=== PATIENT | male | born 1950 | race Caucasian/White ===

== ENCOUNTER 2016-05-20 23:06 | Emergency (ER) | payer OTHER ==
--- NOTE | 2016-05-20 23:40 | PROVIDER DOCUMENTATION ---
HPI-General Adult <Deniz Lang - Last Filed: 05/21/16 03:44> - General Source: patient, family - History of Present Illness -Gen Adult Nature of Presenting Problems: Pt is a 65 yom who presents to ER with CC of increased lethargy and fatigue. Pt had a stroke x5 weeks ago and was sent to rehab for 30 days and was discharged yesterday. Pt's family reports that pt was doing well throughout rehab, but woke up this am and reports pt was hard to wake up and had increased lethargy. Family also reports that pt has fell x3 today, and has had increased slurred speech today. Pt had R sided stroke and was left with total L side paralysis, slurred speech, and L sided facial droop. Family reports pt has fallen x3 today. Location of Pain/Injury: reports: none Pain Radiation: reports: no radiation Quality of Pain: reports: none Severity: reports: moderate Onset/Duration: reports: this morning Timing: reports: still present, constant Context/Activities at Onset: reports: sleep Associated Symptoms: reports: fatigue, headaches, syncope (near syncope), weakness, trouble walking. denies: anxiety, arm pain, back/neck pain, chest pain, diaphoresis, diarrhea, dizziness, fever/chills, loss of appetite, muscle aches, nausea, shortness of breath, vomiting <Jani Brito - Last Filed: 05/21/16 18:43> - General Chief Complaint: Altered Mental Status Stated Complaint: GENERAL, AMS Time Seen by Provider: 05/20/16 23:35 Allergies/Adverse Reactions: Patient Allergies Allergy/AdvReac Type Severity Reaction Status Date / Time Penicillins Allergy RASH Verified 05/20/16 23:25 Home Medications: Home Medication List Medication Instructions Recorded Confirmed Last Taken Type Alprazolam [Xanax Xr] 4 mg PO DAILY 09/16/13 05/21/16 05/20/16 14:00 History Aspirin [Aspirin EC] 81 mg PO DAILY 09/16/13 05/21/16 04/14/16 07:00 History 81 MG Amlodipine [Norvasc] 10 mg PO DAILY 05/21/16 05/21/16 Unknown History Atenolol [Tenormin] 25 mg PO DAILY 05/21/16 05/21/16 Unknown History Baclofen 10 mg PO TID 05/21/16 05/21/16 Unknown History Famotidine 20 mg PO BID 05/21/16 05/21/16 Unknown History Hydrocodone/APAP 5 mg/325 mg 1 each PO TID PRN PRN 05/21/16 05/21/16 Unknown History [[place]-5] Sertraline HCl 100 mg PO DAILY 05/21/16 05/21/16 Unknown History Tamsulosin [Flomax] 0.4 mg PO DAILY 05/21/16 05/21/16 Unknown History Review of Systems - Adult - REVIEW OF SYSTEMS - ADULT Constitutional: reports: fatique. denies: chills, fever, night sweats Eyes: reports: no symptoms reported Ears, Nose, Mouth & Throat: reports: no symptoms reported Cardiovascular: denies: chest pain, edema, heart murmur, irregular heart rate, palpitations, poor circulation, syncope (near-syncope) Respiratory: reports: no symptoms reported Gastrointestinal: reports: no symptoms reported Genitourinary: reports: no symptoms reported Musculoskeletal: reports: muscle weakness. denies: bone pain, back pain, frequent leg cramps, joint pain, joint swelling, muscle aches, neck pain Integumentary: reports: no symptoms reported Neurological: reports: headache/migraines, loss of balance, paresthesia (L sided (from prior stroke)), slurred speech (Increased (baseline is slurred; family reports is worse today)). denies: ataxia, dizziness/vertigo, numbness, seizure, syncope, tremors Psychiatric: reports: no symptoms reported Endocrine: reports: no symptoms reported Hematologic/Lymphatic: reports: no symptoms reported Allergic/Immunologic: reports: no symptoms reported All Other Systems: Reviewed and Negative <Jani Brito - Last Filed: 05/21/16 18:43> Past History - Adult - PAST MEDICAL HISTORY-ADULT Review of Records: reports: Nursing Assessment Review, Medications Reviewed Cardiovascular: reports: HTN Respiratory: reports: other (left lung removal) Gastrointestinal: reports: other (diverticulitis) Neurological: reports: other (bells palsy) - IMMUNIZATION STATUS Childhood Immunizations: See Nurse Assessment Flu Vaccine: See Nurse Assessment <Jani Brito - Last Filed: 05/21/16 18:43> Physical Exam-General - PHYSICAL EXAM-ADULT Initial Vital Signs Reviewed: Yes - CONSTITUTIONAL General Appearance: appears well, alert, moderate distress, lethargic, slow to respond, obtunded. negative: combative - RESPIRATORY Respiratory: chest non-tender, lungs clear, normal breath sounds. negative: respiratory distress, decreased breath sounds, accessory muscle use, wheezing - CARDIOVASCULAR Cardiovascular: normal peripheral pulses, regular rate, rhythm. negative: bradycardia, tachycardia, irregularly irregular - GASTROINTESTINAL (ABDOMEN) Abdominal Exam: normal bowel sounds, non tender, soft. negative: abnormal bowel sounds, tenderness, mass - SKIN Integumentary: normal color, normal turgor, warm/dry - NEUROLOGIC Neurologic: grossly normal, facial droop (L sided (baseline)), motor weakness ( L side (baseline)) - PSYCHIATRIC Psych/Mental Status: normal thought content, normal thought process, oriented x 3, disheveled, depressed affect, other (severely lethargic, per family) <Jani Brito - Last Filed: 05/21/16 18:43> Progress - PLAN OF CARE/RESULTS Progress/Plan/Lab Results: Laboratory Tests 05/21/16 05/21/16 05/21/16 00:40 00:40 00:40 WBC 11.04 H RBC 3.31 L Hgb 10.1 L Hct 31.2 L MCV 94.3 MCH 30.5 MCHC 32.4 L RDW Std Deviation 13.7 Plt Count 498 H MPV 9.8 Immature Gran % (Auto) 0.5 Neut % (Auto) 70.1 Lymph % (Auto) 15.9 L [place] % (Auto) 9.6 H Eos % (Auto) 3.5 Baso % (Auto) 0.4 Immature Gran # (Auto) 0.05 H Neut # (Auto) 7.74 H Lymph # (Auto) 1.76 [place] # (Auto) 1.06 H Eos # (Auto) 0.39 Baso # (Auto) 0.04 Sodium 141 Potassium 4.7 Chloride 101 Carbon Dioxide 28 Anion Gap 12 BUN 34 H Creatinine 1.2 Estimated GFR/1.73 m2 > 60 BUN/Creatinine Ratio 28 Glucose 96 Calculated Osmolality 289 Calcium 8.9 Magnesium 1.7 Total Bilirubin 0.19 L AST 22 ALT 27 Alkaline Phosphatase 90 Total Protein 6.0 L Albumin 2.9 L Globulin 3.1 Albumin/Globulin Ratio 0.9 Urine Source Urine Color Urine Turbidity Urine pH Ur Specific [place] Urine Protein Ur Glucose (Stick) Ur Ketones (Stick) Urine Blood Urine Nitrite Urine Bilirubin Urobilinogen Dipstick Urine Leukocytes Urine WBC (Auto) Urine RBC (Auto) U Epithel Cells (Auto) Urine Bacteria (Auto) Urine Opiates Screen Ur Oxycodone Screen Ur Methadone, Qual Ur Barbiturates Screen Ur Phencyclidine Scrn Ur Amphetamines Screen U Benzodiazepines Scrn Urine Cocaine Screen U Cannabinoids Screen Plasma/Serum Ethyl Alc 05/21/16 05/21/16 02:35 02:35 WBC RBC Hgb Hct MCV MCH MCHC RDW Std Deviation Plt Count MPV Immature Gran % (Auto) Neut % (Auto) Lymph % (Auto) [place] % (Auto) Eos % (Auto) Baso % (Auto) Immature Gran # (Auto) Neut # (Auto) Lymph # (Auto) [place] # (Auto) Eos # (Auto) Baso # (Auto) Sodium Potassium Chloride Carbon Dioxide Anion Gap BUN Creatinine Estimated GFR/1.73 m2 BUN/Creatinine Ratio Glucose Calculated Osmolality Calcium Magnesium Total Bilirubin AST ALT Alkaline Phosphatase Total Protein Albumin Globulin Albumin/Globulin Ratio Urine Source CATH Urine Color STRAW Urine Turbidity CLEAR Urine pH 7.0 Ur Specific [place] 1.010 Urine Protein TRACE A Ur Glucose (Stick) NEGATIVE Ur Ketones (Stick) NEGATIVE Urine Blood MODERATE A Urine Nitrite NEGATIVE Urine Bilirubin NEGATIVE Urobilinogen Dipstick NORMAL Urine Leukocytes NEGATIVE Urine WBC (Auto) <10 Urine RBC (Auto) 20-40 A U Epithel Cells (Auto) <10 Urine Bacteria (Auto) NEGATIVE Urine Opiates Screen NONE DETECTED Ur Oxycodone Screen NONE DETECTED Ur Methadone, Qual NONE DETECTED Ur Barbiturates Screen NONE DETECTED Ur Phencyclidine Scrn NONE DETECTED Ur Amphetamines Screen NONE DETECTED U Benzodiazepines Scrn PRESUMPTIVE POSITIVE A Urine Cocaine Screen NONE DETECTED U Cannabinoids Screen NONE DETECTED Plasma/Serum Ethyl Alc Orders Category Date Time Status CHEST-PORTABLE [RAD] Stat Exams 05/20/16 23:14 Taken HEAD W/O CONTRAST [CT] Stat Exams 05/20/16 23:14 Taken ALCOHOL BLOOD Stat Lab 05/20/16 23:57 Completed AMMONIA [CHEM] Stat Lab 05/21/16 00:55 Ordered CBC WITH ELECTRONIC DIFF [HEME] Stat Lab 05/21/16 00:40 Completed CMP [COMPREHENSIVE METABOLIC PANEL] [CHEM] Stat Lab 05/21/16 00:40 Completed MAGNESIUM [CHEM] Stat Lab 05/21/16 00:40 Completed UA Reflex [URINALYSIS W/POSS RFLX CULT] [URINALYSIS] Lab 05/21/16 02:35 Completed Stat UDS [URINE DRUG SCREEN] Stat Lab 05/21/16 02:35 Completed EKG [EKG] Stat Ther 05/20/16 23:14 Ordered Vital Signs Temp Pulse Resp BP Pulse Ox 05/20/16 23:18 97.8 F 56 L 18 142/59 97 Penicillins Allergy (Verified 05/20/16 23:25) RASH Alprazolam [Xanax Xr] 4 mg PO DAILY 09/16/13 Aspirin [Aspirin EC] 81 mg PO DAILY 09/16/13 Amlodipine [Norvasc] 10 mg PO DAILY 05/21/16 Atenolol [Tenormin] 25 mg PO DAILY 05/21/16 Baclofen 10 mg PO TID 05/21/16 Famotidine 20 mg PO BID 05/21/16 Hydrocodone/APAP 5 mg/325 mg [[place]-5] 1 each PO TID PRN PRN 05/21/16 Sertraline HCl 100 mg PO DAILY 05/21/16 Tamsulosin [Flomax] 0.4 mg PO DAILY 05/21/16 Laboratory 05/21/16 05/21/16 05/21/16 02:35 02:35 00:40 WBC RBC Hgb Hct MCV MCH MCHC RDW Std Deviation Plt Count MPV Immature Gran % (Auto) Neut % (Auto) Lymph % (Auto) [place] % (Auto) Eos % (Auto) Baso % (Auto) Immature Gran # (Auto) Neut # (Auto) Lymph # (Auto) [place] # (Auto) Eos # (Auto) Baso # (Auto) Sodium 141 Potassium 4.7 Chloride 101 Carbon Dioxide 28 Anion Gap 12 BUN 34 H Creatinine 1.2 Estimated GFR/1.73 m2 > 60 BUN/Creatinine Ratio 28 Glucose 96 Calculated Osmolality 289 Calcium 8.9 Magnesium 1.7 Total Bilirubin 0.19 L AST 22 ALT 27 Alkaline Phosphatase 90 Total Protein 6.0 L Albumin 2.9 L Globulin 3.1 Albumin/Globulin Ratio 0.9 Urine Source CATH Urine Color STRAW Urine Turbidity CLEAR Urine pH 7.0 Ur Specific [place] 1.010 Urine Protein TRACE A Ur Glucose (Stick) NEGATIVE Ur Ketones (Stick) NEGATIVE Urine Blood MODERATE A Urine Nitrite NEGATIVE Urine Bilirubin NEGATIVE Urobilinogen Dipstick NORMAL Urine Leukocytes NEGATIVE Urine WBC (Auto) <10 Urine RBC (Auto) 20-40 A U Epithel Cells (Auto) <10 Urine Bacteria (Auto) NEGATIVE Urine Opiates Screen NONE DETECTED Ur Oxycodone Screen NONE DETECTED Ur Methadone, Qual NONE DETECTED Ur Barbiturates Screen NONE DETECTED Ur Phencyclidine Scrn NONE DETECTED Ur Amphetamines Screen NONE DETECTED U Benzodiazepines Scrn PRESUMPTIVE POSITIVE A Urine Cocaine Screen NONE DETECTED U Cannabinoids Screen NONE DETECTED Plasma/Serum Ethyl Alc 05/21/16 05/21/16 00:40 00:40 WBC 11.04 H RBC 3.31 L Hgb 10.1 L Hct 31.2 L MCV 94.3 MCH 30.5 MCHC 32.4 L RDW Std Deviation 13.7 Plt Count 498 H MPV 9.8 Immature Gran % (Auto) 0.5 Neut % (Auto) 70.1 Lymph % (Auto) 15.9 L [place] % (Auto) 9.6 H Eos % (Auto) 3.5 Baso % (Auto) 0.4 Immature Gran # (Auto) 0.05 H Neut # (Auto) 7.74 H Lymph # (Auto) 1.76 [place] # (Auto) 1.06 H Eos # (Auto) 0.39 Baso # (Auto) 0.04 Sodium Potassium Chloride Carbon Dioxide Anion Gap BUN Creatinine Estimated GFR/1.73 m2 BUN/Creatinine Ratio Glucose Calculated Osmolality Calcium Magnesium Total Bilirubin AST ALT Alkaline Phosphatase Total Protein Albumin Globulin Albumin/Globulin Ratio Urine Source Urine Color Urine Turbidity Urine pH Ur Specific [place] Urine Protein Ur Glucose (Stick) Ur Ketones (Stick) Urine Blood Urine Nitrite Urine Bilirubin Urobilinogen Dipstick Urine Leukocytes Urine WBC (Auto) Urine RBC (Auto) U Epithel Cells (Auto) Urine Bacteria (Auto) Urine Opiates Screen Ur Oxycodone Screen Ur Methadone, Qual Ur Barbiturates Screen Ur Phencyclidine Scrn Ur Amphetamines Screen U Benzodiazepines Scrn Urine Cocaine Screen U Cannabinoids Screen Plasma/Serum Ethyl Alc - REASSESSMENT Reassessment #1 Time Reassessed: 03:46 (new hx is that he HAD been taking 4mg of extended release aprazolam until he had his CVA and is was off of it for a prolonged time then restarted at a much lower dose until yesterday when he went back to his old much higher dose which caused today's sedation) Status: unchanged <JohnnieWendyVivianaDeniz gallegosRonak - Last Filed: 05/21/16 03:44> - PLAN OF CARE/RESULTS Progress/Plan/Lab Results: POC: labs/Chest X-ray/Head CT Vital Signs - 24 hr 05/20/16 05/21/16 23:18 04:22 Temperature 97.8 F Pulse Rate 56 L 58 L Respiratory 18 17 Rate Blood Pressure 142/59 136/69 O2 Sat by Pulse 97 99 Oximetry Orders Category Date Time Status CHEST-PORTABLE [RAD] Stat Exams 05/20/16 23:14 Completed HEAD W/O CONTRAST [CT] Stat Exams 05/20/16 23:14 Completed ALCOHOL BLOOD Stat Lab 05/20/16 23:57 Completed CBC WITH ELECTRONIC DIFF [HEME] Stat Lab 05/21/16 00:40 Completed CMP [COMPREHENSIVE METABOLIC PANEL] [CHEM] Stat Lab 05/21/16 00:40 Completed MAGNESIUM [CHEM] Stat Lab 05/21/16 00:40 Completed UA Reflex [URINALYSIS W/POSS RFLX CULT] [URINALYSIS] Lab 05/21/16 02:35 Completed Stat UDS [URINE DRUG SCREEN] Stat Lab 05/21/16 02:35 Completed EKG [EKG] Stat Ther 05/20/16 23:14 Ordered Laboratory Tests 05/21/16 05/21/16 05/21/16 00:40 00:40 00:40 WBC 11.04 H RBC 3.31 L Hgb 10.1 L Hct 31.2 L MCV 94.3 MCH 30.5 MCHC 32.4 L RDW Std Deviation 13.7 Plt Count 498 H MPV 9.8 Immature Gran % (Auto) 0.5 Neut % (Auto) 70.1 Lymph % (Auto) 15.9 L [place] % (Auto) 9.6 H Eos % (Auto) 3.5 Baso % (Auto) 0.4 Immature Gran # (Auto) 0.05 H Neut # (Auto) 7.74 H Lymph # (Auto) 1.76 [place] # (Auto) 1.06 H Eos # (Auto) 0.39 Baso # (Auto) 0.04 Sodium 141 Potassium 4.7 Chloride 101 Carbon Dioxide 28 Anion Gap 12 BUN 34 H Creatinine 1.2 Estimated GFR/1.73 m2 > 60 BUN/Creatinine Ratio 28 Glucose 96 Calculated Osmolality 289 Calcium 8.9 Magnesium 1.7 Total Bilirubin 0.19 L AST 22 ALT 27 Alkaline Phosphatase 90 Total Protein 6.0 L Albumin 2.9 L Globulin 3.1 Albumin/Globulin Ratio 0.9 Urine Source Urine Color Urine Turbidity Urine pH Ur Specific [place] Urine Protein Ur Glucose (Stick) Ur Ketones (Stick) Urine Blood Urine Nitrite Urine Bilirubin Urobilinogen Dipstick Urine Leukocytes Urine WBC (Auto) Urine RBC (Auto) U Epithel Cells (Auto) Urine Bacteria (Auto) Urine Opiates Screen Ur Oxycodone Screen Ur Methadone, Qual Ur Barbiturates Screen Ur Phencyclidine Scrn Ur Amphetamines Screen U Benzodiazepines Scrn Urine Cocaine Screen U Cannabinoids Screen Plasma/Serum Ethyl Alc 05/21/16 05/21/16 02:35 02:35 WBC RBC Hgb Hct MCV MCH MCHC RDW Std Deviation Plt Count MPV Immature Gran % (Auto) Neut % (Auto) Lymph % (Auto) [place] % (Auto) Eos % (Auto) Baso % (Auto) Immature Gran # (Auto) Neut # (Auto) Lymph # (Auto) [place] # (Auto) Eos # (Auto) Baso # (Auto) Sodium Potassium Chloride Carbon Dioxide Anion Gap BUN Creatinine Estimated GFR/1.73 m2 BUN/Creatinine Ratio Glucose Calculated Osmolality Calcium Magnesium Total Bilirubin AST ALT Alkaline Phosphatase Total Protein Albumin Globulin Albumin/Globulin Ratio Urine Source CATH Urine Color STRAW Urine Turbidity CLEAR Urine pH 7.0 Ur Specific [place] 1.010 Urine Protein TRACE A Ur Glucose (Stick) NEGATIVE Ur Ketones (Stick) NEGATIVE Urine Blood MODERATE A Urine Nitrite NEGATIVE Urine Bilirubin NEGATIVE Urobilinogen Dipstick NORMAL Urine Leukocytes NEGATIVE Urine WBC (Auto) <10 Urine RBC (Auto) 20-40 A U Epithel Cells (Auto) <10 Urine Bacteria (Auto) NEGATIVE Urine Opiates Screen NONE DETECTED Ur Oxycodone Screen NONE DETECTED Ur Methadone, Qual NONE DETECTED Ur Barbiturates Screen NONE DETECTED Ur Phencyclidine Scrn NONE DETECTED Ur Amphetamines Screen NONE DETECTED U Benzodiazepines Scrn PRESUMPTIVE POSITIVE A Urine Cocaine Screen NONE DETECTED U Cannabinoids Screen NONE DETECTED Plasma/Serum Ethyl Alc - XRAY 1 XRAY: Bilateral XRAY Study: Chest Impression: See EMR Report (Recent R infarct; No blood on the current exam; No midline shift; Possible small recent L infarct; No hydrocephalus) XRAY Interpretation: See report - CT/MRI 1 CT Study: Head Impression: See EMR Report CT Results: Old R sided CVA, no acute changes <Jani Brito - Last Filed: 05/21/16 18:43> Departure - Departure Time of Disposition Order: 03:44 <Deniz Lang - Last Filed: 05/21/16 03:44> - Departure Time of Disposition Order: 04:31 Certified Medical Emergency: Emergent <Jani Brito - Last Filed: 05/21/16 18:43> - Departure DIAGNOSIS: Adverse effect of benzodiazepine Qualifiers: Encounter type: initial encounter Qualified Code(s): T42.4X5A - Adverse effect of benzodiazepines, initial encounter Disposition: HOME 01 Condition: Stable Referrals: Uyen Arceo MD [Primary Care Provider] - Instructions: Basics of Medicine Management Attestation - Scribe Verification/Attestation Scribe:: Jani Brito Acting as Scribe for:: Deniz Lang Scribe documention review:: This chart was documented by a scribe and accurately reflects the service the provider performed and the decisions made by the provider. <Jani Brito - Last Filed: 05/21/16 18:43> Physician Attestation
[2016-05-21 00:58] LABS: MANUAL DIFF NEEDED? NO
[2016-05-21 01:01] LABS: BASO% 0.4 % (0.0-0.8); EOS# 0.39 X1000 (0.0-0.7); EOS% 3.5 % (0.0-10.0); HEMATOCRIT 31.2 % (42.0-52.0); HEMOGLOBIN 10.1 g/dL (14.0-18.0); IMM GRAN# 0.05 X1000 (0.0-0.04); IMM GRAN% 0.5 % (0.0-0.5); LYMPH# 1.76 X1000 (1.2-3.4); LYMPH% 15.9 % (20.5-51.1); MCH 30.5 PG (27-31); MCHC 32.4 g/dL (33-37); MCV 94.3 FL (81-99); MONO# 1.06 X1000 (0.11-0.59); MONO% 9.6 % (1.7-9.3); MPV 9.8 FL (7.4-10.4); NEUT% 70.1 % (42.2-75.2); PLT 498 X1000 (130-400); RBC 3.31 XMIL (4.7-6.1)
[2016-05-21 01:27] LABS: AGAP 12; ALBUMIN 2.9 g/dL (3.5-5.0); ALKALINE PHOSPHATASE 90 U/L (32-122); BUN 34 mg/dL (8-22); CALCIUM 8.9 mg/dL (8.8-10.2); CHLORIDE 101 mmol/L (98-107); COSMO 289; GOT 22 U/L (10-34); GPT 27 U/L (10-44); MAGNESIUM 1.7 mg/dL (1.5-2.7); POTASSIUM 4.7 mmol/L (3.5-5.1); SODIUM 141 mmol/L (136-145); TCO2 28 mmol/L (25-35); TOTAL BILIRUBIN 0.19 mg/dL (0.20-1.00)
[2016-05-21 02:43] LABS: URINE CULTURE NEEDED? NO; URINE MICRO REVIEW NEEDED? NO; URINE SOURCE CATH
[2016-05-21 02:46] LABS: BILIRUBIN URINE NEGATIVE (NEGATIVE); BLOOD URINE MODERATE (NEGATIVE); COLOR STRAW; GLUCOSE URINE NEGATIVE (NEGATIVE); LEUKOCYTES URINE NEGATIVE (NEGATIVE); NITRITE URINE NEGATIVE (NEGATIVE); PROTEIN URINE TRACE mg/dL (NEGATIVE); TURBIDITY URINE CLEAR (CLEAR); UROBILINOGEN URINE NORMAL (NORMAL)
[2016-05-21 02:47] LABS: UR EPITHELIAL CELLS <10 /HPF (<10); URINE BACTERIA NEGATIVE /HPF; URINE RBC 20-40 /HPF (<10); URINE WBC <10 /HPF (<10)
[2016-05-21 03:00] LABS: UR AMPHETAMINES QUAL NONE DETECTED (NONE DETECT); UR BARBITUATES QUAL NONE DETECTED (NONE DETECT); UR BENZODIAZEPIN QUAL PRESUMPTIVE POSITIVE (NONE DETECT); UR CANNABINOIDS QUAL NONE DETECTED (NONE DETECT); UR COCAINE QUAL NONE DETECTED (NONE DETECT); UR METHADONE QUAL NONE DETECTED (NONE DETECT); UR OPIATES QUAL NONE DETECTED (NONE DETECT); UR OXYCODONE QUAL NONE DETECTED (NONE DETECT); UR PCP QUAL NONE DETECTED (NONE DETECT)
[2016-05-21 04:23] VITALS: BP 136/69
--- NOTE | 2016-05-21 09:32 | Diag Imaging Result Document ---
PROCEDURE NAME: CHEST-PORTABLE - 05/20/2016 AP PORTABLE CHEST, 05/20/2016 AT 2335 HOURS: FINDINGS: There are granulomata in the right base and there is COPD. The left hemithorax is completely opacified status post pneumonectomy. Overall, the appearance of the chest has not changed significantly since 04/14/2016. IMPRESSION: Stable chest.
--- NOTE | 2016-05-21 10:56 | Diag Imaging Result Document ---
PROCEDURE NAME: HEAD W/O CONTRAST - 05/20/2016 CT OF THE HEAD WITHOUT CONTRAST: FINDINGS: There is hypodensity and some slight mass effect associated with the hypodense lesion in the posterior limb of the internal capsule, the posterior external capsule, thalamus and basal ganglia on the right. There was a hemorrhage in this location on the previous study of 04/14/2016. The hyperdense hemorrhage has resolved since the previous study. No additional foci of bleeding are present and there is no evidence of abnormal extraaxial fluid collection. There is also some abnormal lucency in the aguilera radiata region on the left which was present at the time of the previous study. There is no evidence of hydrocephalus. There is some mucosal thickening in the frontal and ethmoid air cells. This is slightly worse than on the previous study. 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 Chronic ischemic microvascular changes. If clinically indicated, further evaluation with MRI may be desirable.
== END 2016-05-21 04:31 | disposition home or self-care (01) ==
LOC: ED 23:06
DX: T42.4X5A Adverse effect of benzodiazepines, initial encounter (principal); R53.83 Other fatigue; R47.81 Slurred speech; R51 Headache; R55 Syncope and collapse; M62.81 Muscle weakness (generalized); R29.810 Facial weakness; R41.82 Altered mental status, unspecified; R42 Dizziness and giddiness; I10 Essential (primary) hypertension; I69.398 Other sequelae of cerebral infarction; I69.328 Other speech and language deficits following cerebral infarction; Z79.82 Long term (current) use of aspirin; Z79.899 Other long term (current) drug therapy; W19.XXXA Unspecified fall, initial encounter
CPT/HCPCS: 70450; 71010; 80053; 81001; 83735; 85025; 93005; G0480; 80320; 80324; 80345; 80346; 80349; 80353; 80358; 80361; 80365; 83992

== ENCOUNTER 2016-07-01 04:40 | Inpatient (IN) ==
--- NOTE | 2016-07-01 05:36 | PROVIDER DOCUMENTATION ---
HPI-General Adult - General Chief Complaint: Altered Mental Status Stated Complaint: FEVER, CONFUSION, COUGHING UP BLOOD Time Seen by Provider: 07/01/16 04:58 Source: patient, family Allergies/Adverse Reactions: Patient Allergies Allergy/AdvReac Type Severity Reaction Status Date / Time Penicillins Allergy RASH Verified 07/01/16 05:38 Home Medications: Home Medication List Medication Instructions Recorded Confirmed Last Taken Type Alprazolam [Xanax Xr] 1 mg PO BID 09/16/13 07/01/16 06/30/16 History Aspirin [Aspirin EC] 81 mg PO DAILY 09/16/13 07/01/16 06/30/16 History Amlodipine [Norvasc] 10 mg PO DAILY 05/21/16 07/01/16 06/30/16 History Atenolol [Tenormin] 25 mg PO DAILY 05/21/16 07/01/16 06/30/16 History Baclofen 10 mg PO TID 05/21/16 07/01/16 06/30/16 History Famotidine 20 mg PO BID 05/21/16 07/01/16 06/30/16 History Hydrocodone/APAP 5 mg/325 mg 1 each PO TID PRN PRN 05/21/16 07/01/16 Unknown History [[place]-5] Sertraline HCl 100 mg PO DAILY 05/21/16 07/01/16 06/30/16 History Tamsulosin [Flomax] 0.4 mg PO DAILY 05/21/16 07/01/16 06/30/16 History Multivit-Min/FA/Lycopen/Lutein 1 tab PO DAILY 07/01/16 07/01/16 06/30/16 History [Men 50 Plus Multivitamin Tab] - History of Present Illness -Gen Adult Nature of Presenting Problems: 65 yr old white male suffer hemorhagic CVA a few months ago and was in [facility] for 4 weeks and outpt PT subsequently. He has made a fairly good recovery despite having a bout of withdrawal secondary to abruptly discontinuing benzodiazepines, a UTI, etc. He awoke this am with hemoptosis described as bright red blood. He has undergone a rt pneumonectomy 13 years ago for cancer and did stop smoking at that point. Appetite is good. Location of Pain/Injury: reports: none Pain Radiation: reports: no radiation Quality of Pain: reports: none Context/Activities at Onset: reports: none Similar Symptoms Previously?: No Recently seen or treated by another doctor?: Yes ([facility]) Review of Systems - Adult - REVIEW OF SYSTEMS - ADULT Constitutional: reports: see HPI, chills, fever, weight loss Eyes: reports: no symptoms reported Ears, Nose, Mouth & Throat: reports: no symptoms reported Cardiovascular: reports: no symptoms reported Respiratory: reports: see HPI Gastrointestinal: reports: no symptoms reported Genitourinary: reports: frequency, incontinence, urinary retention Integumentary: reports: other (left hemiparesis) Neurological: reports: see HPI, dizziness/vertigo, loss of balance, slurred speech Psychiatric: reports: anti-depressant use Endocrine: reports: no symptoms reported Hematologic/Lymphatic: reports: no symptoms reported Allergic/Immunologic: reports: no symptoms reported Past History - Adult - PAST MEDICAL HISTORY-ADULT Review of Records: reports: Old Records Reviewed, Nursing Assessment Review, Medications Reviewed, Social history reviewed & non-contributory. Major Childhood Illnesses: reports: denies history Cardiovascular: reports: HTN Respiratory: reports: other (left lung removal) Gastrointestinal: reports: other (diverticulitis) Neurological: reports: other (bells palsy) - IMMUNIZATION STATUS Childhood Immunizations: See Nurse Assessment Flu Vaccine: See Nurse Assessment Physical Exam-General - PHYSICAL EXAM-ADULT Initial Vital Signs Reviewed: Yes - CONSTITUTIONAL General Appearance: no apparent distress, thin - EYES Eyes: pink conjunctivae - HEAD, EARS, NOSE, MOUTH & THROAT HENMT: other (cervical adenopathy) - NECK Neck: lymphadenopathy - RESPIRATORY Respiratory: decreased breath sounds, wheezing, other (rt pneumonectomy) - CARDIOVASCULAR Cardiovascular: normal peripheral pulses, regular rate, rhythm, no edema, no gallop, no JVD - GASTROINTESTINAL (ABDOMEN) Abdominal Exam: normal bowel sounds, non tender - MUSCULOSKELETAL Extremity: non-tender, no pedal edema, no calf tenderness, normal capillary refill (Hemiparesis). negative: normal gait, normal inspection Peripheral Pulses: radial (R): 3+, radial (L): 3+ - SKIN Integumentary: normal color, normal turgor, warm/dry - NEUROLOGIC Neurologic: abnormal gait, motor weakness (Left hemiparesis), other (mild dysphasis). negative: no motor/sensory deficits - PSYCHIATRIC Psych/Mental Status: normal thought content, oriented x 3 Progress - PLAN OF CARE/RESULTS Progress/Plan/Lab Results: Vital Signs - 8 hr 07/01/16 04:45 Temperature 97.4 F L Pulse Rate 66 Respiratory Rate 16 Blood Pressure 150/57 O2 Sat by Pulse Oximetry 98 Orders Category Date Time Status CHEST-PORTABLE [RAD] Stat Exams 07/01/16 05:23 Ordered CBC WITH ELECTRONIC DIFF [HEME] Stat Lab 07/01/16 05:22 Uncollected COMPREHENSIVE METABOLIC PANEL [CHEM] Stat Lab 07/01/16 05:22 Uncollected UA NIMS W/REFLEX CULT [URINALYSIS] Stat Lab 07/01/16 05:23 Uncollected Result Diagrams: 07/01/16 05:30 07/01/16 05:30 - XRAY 1 XRAY Study: Chest Impression: Abnormal XRAY Interpretation: RLL infiltrates - CT/MRI 1 CT Study: Head Comparison with other Films: no changes MRI Study: Brain - CONSULTS/PCP/HOSPITALIST Notification Time Discussed: 08:01 Reason/Comments: Admit to hospitalist Consult Disposition: Admit Departure - Departure Time of Disposition Decision: 08:00 DIAGNOSIS: Pneumonia Qualifiers: Pneumonia type: due to unspecified organism Laterality: right Lung location: lower lobe of lung Qualified Code(s): J18.1 - Lobar pneumonia, unspecified organism UTI (urinary tract infection) Qualifiers: Urinary tract infection type: acute cystitis Hematuria presence: without hematuria Qualified Code(s): N30.00 - Acute cystitis without hematuria Disposition: ADMITTED INPATIENT 09 Certified Medical Emergency: Emergent Condition: Stable Referrals and Follow-Ups: Uyen Arceo MD [Primary Care Provider] -
[2016-07-01 05:43] LABS: URINE MICRO REVIEW NEEDED? NO; URINE SOURCE CLEAN CATCH
[2016-07-01 05:46] LABS: BILIRUBIN URINE NEGATIVE (NEGATIVE); BLOOD URINE MODERATE (NEGATIVE); COLOR YELLOW; GLUCOSE URINE NEGATIVE (NEGATIVE); LEUKOCYTES URINE TRACE (NEGATIVE); NITRITE URINE NEGATIVE (NEGATIVE); PROTEIN URINE 50 mg/dL (NEGATIVE); SP GRAVITY URINE 1.015; TURBIDITY URINE HAZY (CLEAR); UROBILINOGEN URINE NORMAL (NORMAL)
[2016-07-01 05:48] LABS: UR EPITHELIAL CELLS <10 /HPF (<10); URINE BACTERIA NEGATIVE /HPF; URINE CULTURE NEEDED? YES; URINE RBC 20-40 /HPF (<10)
[2016-07-01 05:51] LABS: BASO% 0.2 % (0.0-0.8); EOS# 0.05 X1000 (0.0-0.7); EOS% 0.2 % (0.0-10.0); HEMATOCRIT 28.8 % (42.0-52.0); HEMOGLOBIN 9.6 g/dL (14.0-18.0); IMM GRAN# 0.08 X1000 (0.0-0.04); IMM GRAN% 0.4 % (0.0-0.5); LYMPH# 1.59 X1000 (1.2-3.4); LYMPH% 7.3 % (20.5-51.1); MANUAL DIFF NEEDED? NO; MCH 30.8 PG (27-31); MCHC 33.3 g/dL (33-37); MCV 92.3 FL (81-99); MONO# 2.66 X1000 (0.11-0.59); MONO% 12.3 % (1.7-9.3); MPV 10.3 FL (7.4-10.4); NEUT% 79.6 % (42.2-75.2); PLT 378 X1000 (130-400); RBC 3.12 XMIL (4.7-6.1)
[2016-07-01] MEDS ORDERED: NS 1,000 ML IV ONE (06:25)
[2016-07-01] MEDS ORDERED: VANCOMYCIN 1 GM/NS 1 GM/250 ML IVPB IV ONE (06:26)
[2016-07-01] MEDS ORDERED: LEVAQUIN 500 MG/D5W 500 MG/100 ML IVPB IV ONE (06:27)
[2016-07-01 06:31] LABS: ALBUMIN 3.1 g/dL (3.5-5.0); CALCIUM 9.3 mg/dL (8.8-10.2); POTASSIUM 4.8 mmol/L (3.5-5.1); TOTAL BILIRUBIN 0.43 mg/dL (0.20-1.00); TOTAL PROTEIN 7.5 g/dL (6.3-8.3)
[2016-07-01 06:44] LABS: ALLEN TEST YES; BE 3.6 mmoll (-3.0-3.0); BLOOD TYPE ARTERIAL; DRAW SITE R RADIAL; METHB 1.7 % (0.0-1.5); O2(CT) 11.4 mL/dL (15.0-23.0); PO2(98.6) 61 mmHg (60-100); SAMPLE BLOOD; SAO2 95.4 % (95.0-100.0); THB 8.8 g/dL (11.5-17.4); pH(98.6) 7.37 (7.35-7.45)
[2016-07-01 06:45] LABS: MODALITY CANNULA
[2016-07-01 06:47] LABS: PCO2(98.6) 51 mmHg (35-45)
--- NOTE | 2016-07-01 07:56 | Diag Imaging Result Document ---
PROCEDURE NAME: HEAD W/O CONTRAST - 07/01/[address]: 07/01/2016. A CT dose reduction protocol was used. COMPARISON: 05/20/2016. FINDINGS: Stable hypodensity at the right basal ganglia. Stable hypodensities in the cerebral white matter compatible with chronic microvascular disease. No intracranial mass or hemorrhage. The skull is intact. The sinuses, mastoids, and middle ears are clear. IMPRESSION: No acute disease or change from prior. [facility]
--- NOTE | 2016-07-01 08:43 | Diag Imaging Result Document ---
PROCEDURE NAME: CT THORAX W/O CONTRAST - 07/01/2016 CT CHEST: A CT dose reduction protocol was used. COMPARISON: Chest x-ray earlier 07/01/2016. FINDINGS: There has been left pneumonectomy. There is severe COPD throughout the right lung. There is severe infiltrate throughout the right lower and middle lobes with some patchy infiltrate in the right upper lobe, as well. When compared with 09/16/2013, there is decrease in size of a spiculated nodular opacity in the right upper lobe. This now measures about 15 mm, previously measuring about 21 mm. No adenopathy. Anemia is present. No acute or suspicious bony lesions. There is chronic bronchitis throughout the right lung. IMPRESSION: 1. Multilobar pneumonia throughout the right lung. Chronic bronchitis. 2. Advanced COPD. 3. Decreased size of the pulmonary nodule in the right upper lobe. MTDD
[2016-07-01 08:46] LABS: PROTEIN CREAT RATIO 0.8; UR CREAT RANDOM 84.2 mg/dL (14-26); UR PROT RANDOM 65.8 mg/dL
[2016-07-01 08:48] LABS: RETIC% 1.35 % (0.8-2.1); RETIC-HE 27.5 PG (28.2-36.6)
[2016-07-01 08:53] LABS: IRON SATURATION 7 %; TIBC 177 ug/dL; TOTAL IRON 13 ug/dL (53-167); UNBOUND IRON 164 ug/dL (112-346)
--- NOTE | 2016-07-01 09:02 | Diag Imaging Result Document ---
PROCEDURE NAME: CHEST-PORTABLE - 07/01/2016 PORTABLE CHEST X-RAY: COMPARISON: 05/20/2016. FINDINGS: Stable changes of left pneumonectomy. Stable hyperexpanded right lung. There is substantial alveolar infiltrate throughout the right lung with basilar predominance. No pneumothorax or large effusion. IMPRESSION: Significant infiltrate throughout the right lung.
--- NOTE | 2016-07-01 10:08 | Diag Imaging Result Document ---
PROCEDURE NAME: US RENAL 2 (RETROPER) COMPLETE - 07/01/2016 RENAL ULTRASOUND: COMPARISON: None. FINDINGS: The kidneys and urinary bladder are normal. The right kidney measures 9.7 x 4.2 x 4.2 cm. Cortex measures 1 cm. The left kidney measures 9.5 x 4.3 x 4.8 cm. Cortex measures 1.1 cm. IMPRESSION: Negative exam.
[2016-07-01] MEDS ORDERED: VANCOMYCIN IV PER PHARMACY MISC SCH (10:58)
[2016-07-01] MEDS ORDERED: DUONEB (A & A) INH PRN (10:58)
[2016-07-01] MEDS ORDERED: NORCO-5 PO PRN (10:58)
[2016-07-01] MEDS: MERREM 500 MG in NS 50 ML IV SCH (12:46)
[2016-07-01] MEDS: PROTONIX IV SCH (12:46)
[2016-07-01] MEDS: LIORESAL PO SCH ×2 (12:47→17:14)
[2016-07-01] MEDS: ICAR-C PO SCH (12:47)
[2016-07-01] MEDS: NS 1,000 ML IV SCH (12:48)
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
[2016-07-01] MEDS ORDERED: VANCOMYCIN 500 MG/NS 500 MG/100 ML IVPB IV ONE (14:00)
[2016-07-01] MEDS ORDERED: DUONEB (A & A) INH SCH (15:00)
[2016-07-01] MEDS: DUONEB (A & A) INH SCH ×4 (15:58→22:55)
[2016-07-01] MEDS: XANAX XR PO SCH (20:55)
[2016-07-01] MEDS: PEPCID PO SCH (20:55)
[2016-07-01] MEDS ORDERED: XANAX XR PO SCH (21:00)
[2016-07-02] MEDS: MERREM 500 MG in NS 50 ML IV SCH ×3 (01:00→23:36)
[2016-07-02] MEDS: NS 1,000 ML IV SCH ×2 (01:07→13:39)
[2016-07-02 02:31] LABS: URINE CULTURE NEEDED? NO; URINE SOURCE CATH
[2016-07-02 02:42] LABS: BILIRUBIN URINE NEGATIVE (NEGATIVE); BLOOD URINE MODERATE (NEGATIVE); COLOR YELLOW; GLUCOSE URINE NEGATIVE (NEGATIVE); LEUKOCYTES URINE NEGATIVE (NEGATIVE); NITRITE URINE NEGATIVE (NEGATIVE); PROTEIN URINE 30 mg/dL (NEGATIVE); SP GRAVITY URINE 1.013; TURBIDITY URINE HAZY (CLEAR); URINE MICRO REVIEW NEEDED? YES; UROBILINOGEN URINE NORMAL (NORMAL)
[2016-07-02 02:45] LABS: UR EPITHELIAL CELLS <10 /HPF (<10); URINE BACTERIA NEGATIVE /HPF; URINE WBC <10 /HPF (<10)
[2016-07-02] MEDS: DUONEB (A & A) INH SCH ×6 (03:12→23:01)
[2016-07-02 03:51] LABS: URINE CASTS WHITE CELL PRESENT; URINE CRYSTALS NONE SEEN; URINE SMALL ROUND CELLS NONE SEEN
[2016-07-02 04:49] LABS: ALLEN TEST YES; BE 2.3 mmoll (-3.0-3.0); BLOOD TYPE ARTERIAL; DRAW SITE R RADIAL; METHB 1.7 % (0.0-1.5); MODALITY CANNULA; O2(CT) 9.1 mL/dL (15.0-23.0); PCO2(98.6) 44 mmHg (35-45); PO2(98.6) 57 mmHg (60-100); SAMPLE BLOOD; SAO2 94.5 % (95.0-100.0); THB 7.1 g/dL (11.5-17.4)
[2016-07-02] MEDS ORDERED: ATIVAN IV ONE (05:21)
[2016-07-02 06:57] LABS: MANUAL DIFF NEEDED? NO
[2016-07-02 07:33] LABS: BASO% 0.2 % (0.0-0.8); EOS# 0.02 X1000 (0.0-0.7); EOS% 0.1 % (0.0-10.0); HEMATOCRIT 24.1 % (42.0-52.0); HEMOGLOBIN 7.7 g/dL (14.0-18.0); IMM GRAN# 0.06 X1000 (0.0-0.04); IMM GRAN% 0.4 % (0.0-0.5); LYMPH# 0.83 X1000 (1.2-3.4); LYMPH% 5.5 % (20.5-51.1); MCH 29.3 PG (27-31); MCV 91.6 FL (81-99); MONO# 1.65 X1000 (0.11-0.59); MONO% 10.9 % (1.7-9.3); MPV 10.7 FL (7.4-10.4); NEUT% 82.9 % (42.2-75.2); PLT 315 X1000 (130-400); RBC 2.63 XMIL (4.7-6.1)
[2016-07-02 07:34] LABS: ALBUMIN 2.4 g/dL (3.5-5.0); CALCIUM 8.6 mg/dL (8.8-10.2); POTASSIUM 4.2 mmol/L (3.5-5.1); TOTAL BILIRUBIN 0.34 mg/dL (0.20-1.00); TOTAL PROTEIN 6.2 g/dL (6.3-8.3)
--- NOTE | 2016-07-02 08:02 | Diag Imaging Result Document ---
PROCEDURE NAME: CHEST-1 VIEW - 07/02/2016 PORTABLE CHEST X-RAY, 07/02/2016: COMPARISON: 07/01/2016. FINDINGS: Stable left pneumonectomy changes. Stable significant infiltrate throughout the right lung mostly in the base. No new infiltrates. IMPRESSION: No change from prior.
[2016-07-02] MEDS: ASPIRIN EC PO SCH (08:33)
[2016-07-02] MEDS: THERA M PLUS PO SCH (08:33)
[2016-07-02] MEDS: PEPCID PO SCH ×2 (08:33→20:29)
[2016-07-02] MEDS: NORVASC PO SCH (08:33)
[2016-07-02] MEDS: LIORESAL PO SCH ×3 (08:33→17:48)
[2016-07-02] MEDS: FLOMAX PO SCH (08:34)
[2016-07-02] MEDS: TENORMIN PO SCH (08:34)
[2016-07-02] MEDS: ZOLOFT PO SCH (08:36)
[2016-07-02] MEDS: ICAR-C PO SCH (08:36)
[2016-07-02] MEDS ORDERED: LEVAQUIN 500 MG/D5W 500 MG/100 ML IVPB IV SCH (10:00)
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
[2016-07-02] MEDS: XANAX XR PO SCH ×2 (11:13→20:29)
[2016-07-02] MEDS: SODIUM CHLORIDE 0.9% INJ SCH (11:17)
[2016-07-02] MEDS: PROTONIX IV SCH (11:17)
--- NOTE | 2016-07-02 14:29 | PROGRESS NOTE ---
DATE: 07/02/2016 SUBJECTIVE: The patient is resting comfortably in bed at this time. He did have periods of agitation last night and required Ativan. OBJECTIVE: Vital Signs: Temperature 99 degrees, blood pressure 105/50, heart rate 70, respirations 20, O2 saturations 94% on 4 L nasal cannula. General: This is an elderly male, lying comfortably in bed, in no acute distress. Head: Normocephalic, atraumatic. Heart: S1, S2. Normal. Regular rate and rhythm. Lungs: Coarse breath sounds. No crackles. No rales. Abdomen: Positive bowel sounds. Soft, nontender, nondistended. Extremities: No edema. No cyanosis. No calf tenderness. Neurologic: The patient is lethargic and confused. He is able to move all 4 extremities. LABS: White blood cell count 15, hemoglobin 7.7, hematocrit 24, platelets 315, 000. ABG, pH 7.4, pCO2 44, PO2 57, bicarb 26. Sodium 139, potassium 4.2, chloride 102, CO2 24, BUN 41, creatinine 1.8, glucose 85, AST 16, ALT 12, alkaline phosphatase 75. ASSESSMENT AND PLAN: 1. Right lung pneumonia. So far the blood cultures are negative. We have been unable to obtain a sputum culture at this time. Continue on broad-spectrum antibiotics plus bronchodilator therapy. Pulmonary is following. 2. Metabolic encephalopathy. This is most likely secondary to the patient's underlying infection. Will continue to monitor for improvement. We will order a modified barium swallow test for tomorrow. For now the patient will remain NPO. 3. History of lung cancer status post left pneumonectomy. Aware. 4. Leukocytosis. Improved. Continue on IV antibiotic therapy. 5. Anemia. The patient's hemoglobin and hematocrit have decreased; however, the patient is on IV fluids. We will check iron studies. 6. Acute kidney injury. Slowly improving. Continue on gentle IV fluid hydration. 7. Benign prostatic hypertrophy. Aware. 8. Deep vein thrombosis prophylaxis. We will continue with SCDs. 9. History of a recent intraparenchymal bleed. Aware. We will avoid anticoagulants. cc: Nyasia Bernardo MD [facility]ERSuzanne
[2016-07-02] MEDS: MUCOMYST 20% INH SCH (19:11)
[2016-07-03] MEDS: NS 1,000 ML IV SCH ×2 (02:21→21:10)
--- NOTE | 2016-07-03 02:42 | CONSULTATION ---
DATE OF CONSULTATION: 07/01/2016 CHIEF COMPLAINT: Fever, confusion, coughing up bright red blood. HISTORY OF PRESENT ILLNESS: This 65-year-old male presented to the ER with a complaint of productive cough with hemoptysis, fever and confusion. Upon assessment he appears very drowsy and lethargic with significant sleep apnea. ALLERGIES: Penicillin. Medication in hospital reviewed. PAST MEDICAL HISTORY: Unable to obtain. Poor historian. Past surgical history: Lung surgery in past. Recent CVA SOCIAL HISTORY: Noncontributory. FAMILY HISTORY: Unable to obtain. Poor historian. ROS: as detailed above otherwise non-contributory. Physical Exam: General: lethargic. VS seen. HEENT: examined. Chest: reduced entry. CVS: S1S2. Abd. Non-tender. LL trace edema. Neuro: Lethargic and paretic. LABORATORY DATA: White blood cells 21.66, red blood cells 3.12, hemoglobin 9.6 , hematocrit 28.8, RDW 15.6. ABGs 7.37 pH, pCO2 51, PO2 is 61, HC03 27.7, oxyhemoglobin 91.4. Sodium 137, potassium 4.8, chloride 97, BUN 52, creatinine 2.5, iron is 13, albumin 3.1. He is positive for UTI. DIAGNOSTIC DATA: Renal ultrasound. The impression is negative. Chest CT impression. 1) Multilobar pneumonia throughout the right lung and chronic bronchitis. 2) Advanced COPD. 3) Decreased size of pulmonary nodule in the right upper lobe. Head CT impression is no acute disease or change from prior exam. Chest x-ray impression. Significant infiltrate throughout the right lung. ASSESSMENT AND PLAN: Old CVA and aspiration is possible. 1. Pneumonia throughout the right lung. Continue Levaquin as prescribed. 2. Advanced chronic obstructive pulmonary disease. 3. Continue bronchodilators as prescribed. 4. Gastroesophageal reflux disease. Continue GI prophylaxis. Thank you for the courtesy of this consult. cc: MD Nyasia Crowell MD MTDD
[2016-07-03] MEDS: DUONEB (A & A) INH SCH ×6 (03:22→22:59)
[2016-07-03] MEDS ORDERED: STERILE WATER INJ. INJ ONE (03:40)
[2016-07-03] MEDS ORDERED: GEODON IM ONE (03:40)
[2016-07-03 04:31] LABS: MANUAL DIFF NEEDED? NO
[2016-07-03 04:50] LABS: BASO% 0.3 % (0.0-0.8); EOS# 0.09 X1000 (0.0-0.7); EOS% 0.6 % (0.0-10.0); HEMATOCRIT 21.9 % (42.0-52.0); HEMOGLOBIN 7.1 g/dL (14.0-18.0); IMM GRAN# 0.05 X1000 (0.0-0.04); IMM GRAN% 0.3 % (0.0-0.5); LYMPH# 1.36 X1000 (1.2-3.4); LYMPH% 9.1 % (20.5-51.1); MCHC 32.4 g/dL (33-37); MCV 92.4 FL (81-99); MPV 9.8 FL (7.4-10.4); NEUT% 77.7 % (42.2-75.2); PLT 293 X1000 (130-400); RBC 2.37 XMIL (4.7-6.1)
[2016-07-03 04:53] LABS: ALLEN TEST YES; BE 3.7 mmoll (-3.0-3.0); BLOOD TYPE ARTERIAL; DRAW SITE R RADIAL; METHB 1.9 % (0.0-1.5); O2(CT) 10.1 mL/dL (15.0-23.0); PO2(98.6) 90 mmHg (60-100); SAMPLE BLOOD; SAO2 98.1 % (95.0-100.0); THB 7.5 g/dL (11.5-17.4); pH(98.6) 7.35 (7.35-7.45)
[2016-07-03 04:54] LABS: MODALITY CANNULA; PCO2(98.6) 54 mmHg (35-45)
[2016-07-03 04:54] LABS: CALCIUM 8.4 mg/dL (8.8-10.2); POTASSIUM 3.9 mmol/L (3.5-5.1)
--- NOTE | 2016-07-03 07:37 | Diag Imaging Result Document ---
PROCEDURE NAME: CHEST-1 VIEW - 07/03/2016 AP PORTABLE CHEST AT 0500 HOURS: FINDINGS: There is complete opacification with considerable volume loss in the left hemithorax. There is alveolar opacity in the right lung, particularly in the lower lobe. This has not changed appreciably since 07/02/2016. IMPRESSION: Left pneumonectomy. Pulmonary edema plus/minus pneumonia on the right.
[2016-07-03] MEDS: MUCOMYST 20% INH SCH ×2 (08:17→19:36)
[2016-07-03] MEDS: XANAX XR PO SCH ×2 (08:53→21:04)
[2016-07-03] MEDS: LIORESAL PO SCH ×4 (09:14→16:52)
[2016-07-03] MEDS: NORVASC PO SCH ×2 (09:14→09:34)
[2016-07-03] MEDS: ASPIRIN EC PO SCH ×2 (09:14→09:33)
[2016-07-03] MEDS: TENORMIN PO SCH ×2 (09:14→09:33)
[2016-07-03] MEDS: THERA M PLUS PO SCH ×2 (09:14→09:33)
[2016-07-03] MEDS: ICAR-C PO SCH ×2 (09:14→09:34)
[2016-07-03] MEDS: PEPCID PO SCH ×3 (09:14→21:03)
[2016-07-03] MEDS: ZOLOFT PO SCH (09:15)
[2016-07-03] MEDS: FLOMAX PO SCH ×2 (09:15→09:34)
--- NOTE | 2016-07-03 10:54 | PROGRESS NOTE ---
DATE: 07/03/2016 SUBJECTIVE: Patient has no focal complaints. OBJECTIVE: Vital Signs: Blood pressure 123/59, heart rate 69, respiratory rate 20, temperature 98, 97% on 3 L. Cardiovascular: Regular rate and rhythm. Pulmonary: Bilateral breath sounds. Clear to auscultation. GI: Soft, nontender, nondistended. Bowel sounds are positive. Neurologic: He is very lethargic, but does arouse. PROBLEM LIST: 1. Acute encephalopathy, likely multifactorial we will continue to monitor very closely. He has episodes of what is felt to be related delirium versus psychosis. I am going to put him on low-dose Seroquel at night and follow. 2. Pneumonia, clinically he is stable. Currently on antibiotics. Merrem day 3. Vancomycin day 3 on that as well. 3. Hypertension, appears to be stable. 4. Iron-deficiency anemia. I do not see that he has any bleeding, but he has had some significant hemoptysis. His chest x-ray has been repeated, but I am going to go ahead and give him 1 unit of blood and follow closely. He is already on iron, although I do not think he has been taking it aggressively just because of his mental status changes. DISPOSITION: I think he is stable for step-down. We are still proceeding with dysphagia evaluation and we will continue to monitor. cc: Lewis Lentz MD
[2016-07-03] MEDS: PROTONIX IV SCH (11:13)
--- NOTE | 2016-07-03 12:46 | Diag Imaging Result Document ---
PROCEDURE NAME: BA SWALLOW W/VIDEO SPEECH THER - 07/03/2016 MODIFIED BARIUM SWALLOW WITH THE SPEECH THERAPIST: FINDINGS: Total dose is 4 mGy. The patient swallowed thin barium. There was difficulty initiating swallowing. Aspiration occurred immediately with swallowing. Suboptimal cough reflex. Very little other information obtained. IMPRESSION: Quick and prominent aspiration with thin barium.
[2016-07-03] MEDS: MERREM 500 MG in NS 50 ML IV SCH (12:52)
[2016-07-03] MEDS: VANCOMYCIN 1,500 MG in NS 250 ML IV SCH (14:18)
[2016-07-03 15:42] LABS: INR 0.98; PROTIME 10.3 Seconds (9.2-11.7); PTT 35.7 Seconds (22.0-36.0)
[2016-07-03] MEDS ORDERED: SEROQUEL PO SCH (21:00)
[2016-07-04] MEDS: MERREM 500 MG in NS 50 ML IV SCH ×2 (00:53→17:02)
[2016-07-04] MEDS ORDERED: VANCOMYCIN 1,200 MG in NS 250 ML IV SCH (02:00)
[2016-07-04] MEDS: NS 1,000 ML IV SCH (02:50)
[2016-07-04] MEDS: DUONEB (A & A) INH SCH ×6 (03:10→23:05)
[2016-07-04 03:34] LABS: ALLEN TEST YES; BE 5.1 mmoll (-3.0-3.0); BLOOD TYPE ARTERIAL; DRAW SITE R RADIAL; METHB 1.5 % (0.0-1.5); O2(CT) 11.6 mL/dL (15.0-23.0); PO2(98.6) 74 mmHg (60-100); SAMPLE BLOOD; SAO2 97.8 % (95.0-100.0); THB 8.7 g/dL (11.5-17.4); pH(98.6) 7.37 (7.35-7.45)
[2016-07-04 04:31] LABS: MODALITY CANNULA; PCO2(98.6) 54 mmHg (35-45)
[2016-07-04 05:24] LABS: MANUAL DIFF NEEDED? NO
[2016-07-04 05:53] LABS: BASO% 0.4 % (0.0-0.8); EOS# 0.32 X1000 (0.0-0.7); HEMATOCRIT 24.5 % (42.0-52.0); IMM GRAN# 0.08 X1000 (0.0-0.04); IMM GRAN% 0.5 % (0.0-0.5); LYMPH# 1.09 X1000 (1.2-3.4); LYMPH% 6.6 % (20.5-51.1); MCH 29.1 PG (27-31); MCHC 32.7 g/dL (33-37); MCV 89.1 FL (81-99); MONO% 9.8 % (1.7-9.3); MPV 9.9 FL (7.4-10.4); NEUT% 80.7 % (42.2-75.2); PLT 290 X1000 (130-400); RBC 2.75 XMIL (4.7-6.1)
[2016-07-04 06:36] LABS: CALCIUM 8.8 mg/dL (8.8-10.2); POTASSIUM 4.1 mmol/L (3.5-5.1)
[2016-07-04] MEDS: MUCOMYST 20% INH SCH ×2 (07:38→19:12)
--- NOTE | 2016-07-04 07:42 | Diag Imaging Result Document ---
PROCEDURE NAME: CHEST-1 VIEW - 07/04/2016 PORTABLE CHEST X-RAY: COMPARISON: 07/03/2016. FINDINGS: Stable left pneumonectomy. Stable extensive infiltrate throughout the hyperexpanded right lung. No new infiltrates. IMPRESSION: No change from prior.
[2016-07-04] MEDS: XANAX XR PO SCH ×2 (09:29→20:01)
[2016-07-04] MEDS: ZOLOFT PO SCH (09:30)
[2016-07-04] MEDS: THERA M PLUS PO SCH (09:30)
[2016-07-04] MEDS: TENORMIN PO SCH (09:30)
[2016-07-04] MEDS: LIORESAL PO SCH ×3 (09:31→16:51)
[2016-07-04] MEDS: NORVASC PO SCH (09:31)
[2016-07-04] MEDS: PEPCID PO SCH ×2 (09:31→20:01)
[2016-07-04] MEDS: ASPIRIN EC PO SCH (09:32)
[2016-07-04] MEDS: FLOMAX PO SCH (09:32)
[2016-07-04] MEDS: ICAR-C PO SCH (09:32)
[2016-07-04] MEDS ORDERED: NS 0 ML ONE (09:33)
--- NOTE | 2016-07-04 12:21 | PROGRESS NOTE ---
DATE: 07/04/2016 SUBJECTIVE: The patient has no focal complaints, except he wants to eat something. He is a little bit more awake, alert, oriented now. Other problem list. SUBJECTIVE: Vital Signs: Blood pressure 149/71, heart rate of 82, respiratory rate 18, temperature 98.1 degrees. Cardiovascular: Regular rate and rhythm. Pulmonary: Diminished at the bases. GI: Soft, nontender, nondistended. Bowel sounds are positive. LABORATORY DATA: White count 16, hemoglobin and hematocrit 8 and 24, platelets of 290. The PCO2 54. RADIOLOGICAL DATA: His modified barium swallow showed very quick aspiration of thin barium. PROBLEM LIST: 1. Pneumonia, likely aspiration type. He is on Merrem day 4 and vancomycin day 4 and appears to be stable. 2. Acute encephalopathy. He appears to be improving. I am going to put him on Zyprexa at night just because it is a soluble tab. 3. Severe dysphagia. He will need a percutaneous endoscopic gastrostomy tube. We will consult gastroenterology for further evaluation, and he will need VitalStim therapy as an outpatient. DISPOSITION: I think he can probably go to the floor at this point. We will continue to follow closely. cc: Lewis Lentz MD
[2016-07-04] MEDS: PROTONIX IV SCH (13:12)
[2016-07-04] MEDS: HALDOL IV PRN (20:13)
[2016-07-04] MEDS: ATIVAN IV PRN (22:15)
[2016-07-05] MEDS: MERREM 500 MG in NS 50 ML IV SCH ×2 (00:05→12:35)
[2016-07-05] MEDS: NS 1,000 ML IV SCH ×3 (02:54→10:36)
[2016-07-05] MEDS: ATIVAN IV PRN ×2 (02:57→20:50)
[2016-07-05] MEDS: HALDOL IV PRN (02:57)
[2016-07-05] MEDS: DUONEB (A & A) INH SCH ×6 (03:12→23:00)
[2016-07-05 03:40] LABS: ALLEN TEST YES; BE 4.9 mmoll (-3.0-3.0); BLOOD TYPE ARTERIAL; DRAW SITE R RADIAL; METHB 1.9 % (0.0-1.5); O2(CT) 11.2 mL/dL (15.0-23.0); PO2(98.6) 81 mmHg (60-100); SAMPLE BLOOD; SAO2 98.2 % (95.0-100.0); THB 8.4 g/dL (11.5-17.4); pH(98.6) 7.32 (7.35-7.45)
[2016-07-05 03:41] LABS: MODALITY CANNULA
[2016-07-05 03:42] LABS: PCO2(98.6) 62 mmHg (35-45)
[2016-07-05 05:06] LABS: MANUAL DIFF NEEDED? NO
[2016-07-05 05:07] LABS: BASO% 0.5 % (0.0-0.8); EOS# 0.19 X1000 (0.0-0.7); EOS% 1.2 % (0.0-10.0); HEMATOCRIT 27.1 % (42.0-52.0); HEMOGLOBIN 8.7 g/dL (14.0-18.0); IMM GRAN# 0.24 X1000 (0.0-0.04); IMM GRAN% 1.6 % (0.0-0.5); LYMPH# 1.18 X1000 (1.2-3.4); LYMPH% 7.6 % (20.5-51.1); MCH 28.8 PG (27-31); MCHC 32.1 g/dL (33-37); MCV 89.7 FL (81-99); MONO# 1.32 X1000 (0.11-0.59); MONO% 8.5 % (1.7-9.3); MPV 9.7 FL (7.4-10.4); NEUT% 80.6 % (42.2-75.2); PLT 292 X1000 (130-400); RBC 3.02 XMIL (4.7-6.1)
[2016-07-05 05:29] LABS: CALCIUM 8.5 mg/dL (8.8-10.2); POTASSIUM 3.9 mmol/L (3.5-5.1)
--- NOTE | 2016-07-05 06:28 | Diag Imaging Result Document ---
PROCEDURE NAME: CHEST-1 VIEW - 07/05/2016 PORTABLE CHEST: COMPARISON: Compared to 07/04/2016. FINDINGS: There is opacification of the left hemithorax. Mediastinum is shifted from the right to the left. Surgical clips in the left hilum. Dense infiltrates are found in the right base. These may be slightly less dense than on the prior exam. Smaller infiltrates in the mid right lung. No right-sided pleural effusion is identified. IMPRESSION: QUESTIONABLE SLIGHT IMPROVEMENT IN THE RIGHT BASE.
[2016-07-05] MEDS: MUCOMYST 20% INH SCH ×2 (07:27→19:07)
[2016-07-05] MEDS: FLOMAX PO SCH (10:24)
[2016-07-05] MEDS: THERA M PLUS PO SCH (10:25)
[2016-07-05] MEDS: ZOLOFT PO SCH (10:25)
--- NOTE | 2016-07-05 10:33 | PROGRESS NOTE ---
DATE: 07/05/2016 SUBJECTIVE: The patient has no focal complaints. He is more confused today than usual, but he is also kind of been n.p.o. OBJECTIVE: Blood pressure 153/84, heart rate of 75, respiratory 24, temperature 97.7 degrees, 94% on 2 L. Cardiovascular: Regular rate and rhythm. Pulmonary: Bilateral breath sounds. Clear to auscultation. GI: Soft, nontender, nondistended. Bowel sounds are positive. LABORATORY DATA: White count is 15. Hemoglobin and hematocrit 8 and 27. Platelets of 292. Chemistry: Sodium is 154. BUN and creatinine of 41 and 1.4. PROBLEM LIST: 1. Altered mental status likely multifactorial. I think the main issue right now is hypernatremia. He is really free water restricted because he has not been able to eat. I am going to put him on Clinimix, and we will follow clinically. I am going to repeat his basic this afternoon and make sure his sodium is improving. The plan is to get a PEG placed for food and alimentation and medications, and we will continue to follow very closely. 2. History of intracerebral hemorrhage. There has not been any repeated. No bleeding issues, but he has got significant dysphagia now, which is likely why he has recurrent pneumonia. 3. Pneumonia, likely aspiration type. He is on vancomycin and meropenem and seems to be doing okay. We will continue to follow very closely. Disposition is difficult. We will need to do rehab; however, we will continue to follow very closely. 4. Protein calorie malnutrition. We will get some medications for him, and we will start Clinimix and follow. 5. Acute kidney injury. I think he is close to baseline. We will continue to monitor. cc: Lewis Lentz MD
[2016-07-05] MEDS: XANAX XR PO SCH (10:36)
[2016-07-05] MEDS: PEPCID PO SCH (10:36)
[2016-07-05] MEDS: TENORMIN PO SCH (10:36)
[2016-07-05] MEDS: NORVASC PO SCH (10:37)
[2016-07-05] MEDS: ICAR-C PO SCH (10:38)
[2016-07-05] MEDS: LIORESAL PO SCH (10:38)
[2016-07-05] MEDS: CLINIMIX E 4.25%-5% SOLUTION 1,000 ML IV SCH ×2 (10:53→20:49)
[2016-07-05] MEDS: PROTONIX IV SCH ×2 (10:53→12:26)
[2016-07-05] MEDS: SODIUM CHLORIDE 0.9% INJ SCH (10:53)
[2016-07-05] MEDS ORDERED: LEVAQUIN 500 MG/D5W 500 MG/100 ML IVPB IV ONE (13:15)
[2016-07-05] MEDS ORDERED: LEVAQUIN 500 MG/D5W 500 MG/100 ML IVPB ONE (13:22)
[2016-07-05] MEDS ORDERED: ANESTHESIA PB SET 88 IN 5742 ONE (14:05)
[2016-07-05] MEDS ORDERED: EXTENSION SET 32 IN 4522 ONE (14:05)
[2016-07-05] MEDS ORDERED: LR 500 ML ONE (14:06)
[2016-07-05] MEDS: VANCOMYCIN 1,500 MG in NS 250 ML IV SCH (14:36)
[2016-07-05] MEDS ORDERED: TORADOL IV PRN (16:45)
[2016-07-05 18:50] LABS: CALCIUM 8.2 mg/dL (8.8-10.2)
[2016-07-05] MEDS: ZYPREXA ZYDIS PO SCH (20:49)
[2016-07-06] MEDS: HALDOL IV PRN ×2 (00:11→19:17)
[2016-07-06] MEDS: MERREM 500 MG in NS 50 ML IV SCH ×2 (00:12→13:16)
[2016-07-06 05:14] LABS: MANUAL DIFF NEEDED? NO
[2016-07-06 05:22] LABS: ALLEN TEST YES; BLOOD TYPE ARTERIAL; DRAW SITE R RADIAL; METHB 1.7 % (0.0-1.5); O2(CT) 9.2 mL/dL (15.0-23.0); PCO2(98.6) 43 mmHg (35-45); PO2(98.6) 58 mmHg (60-100); SAMPLE BLOOD; SAO2 95.5 % (95.0-100.0); THB 7.1 g/dL (11.5-17.4); pH(98.6) 7.47 (7.35-7.45)
[2016-07-06 05:23] LABS: MODALITY CANNULA
[2016-07-06 05:29] LABS: BASO% 0.5 % (0.0-0.8); EOS# 0.25 X1000 (0.0-0.7); EOS% 1.4 % (0.0-10.0); HEMATOCRIT 25.8 % (42.0-52.0); HEMOGLOBIN 8.3 g/dL (14.0-18.0); IMM GRAN# 0.37 X1000 (0.0-0.04); IMM GRAN% 2.1 % (0.0-0.5); LYMPH# 1.28 X1000 (1.2-3.4); LYMPH% 7.4 % (20.5-51.1); MCH 28.7 PG (27-31); MCHC 32.2 g/dL (33-37); MCV 89.3 FL (81-99); MONO# 1.23 X1000 (0.11-0.59); MONO% 7.1 % (1.7-9.3); MPV 10.3 FL (7.4-10.4); NEUT% 81.5 % (42.2-75.2); PLT 279 X1000 (130-400); RBC 2.89 XMIL (4.7-6.1)
[2016-07-06 05:37] LABS: MAGNESIUM 1.9 mg/dL (1.5-2.7)
[2016-07-06 05:44] LABS: POTASSIUM 3.7 mmol/L (3.5-5.1)
--- NOTE | 2016-07-06 07:25 | Diag Imaging Result Document ---
PROCEDURE NAME: CHEST-1 VIEW - 07/06/2016 PORTABLE CHEST X-RAY: COMPARISON: 07/05/2016. FINDINGS: Stable left pneumonectomy changes. Stable diffuse infiltrate throughout the right lung. No pneumothorax or large effusion. IMPRESSION: No change from prior.
--- NOTE | 2016-07-06 07:29 | OPERATIVE NOTE ---
PROCEDURE DATE: 07/05/2016 REQUESTING PHYSICIAN: Dr. Lentz. TITLE OF PROCEDURE: Esophagogastroscopy with percutaneous endoscopic gastrostomy tube placed 24- Burkinan by pull technique. PREOPERATIVE DIAGNOSES: 1. 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 2. Failed swallow evaluation. 3. Aspiration pneumonia. 4. Malnutrition. POSTOPERATIVE DIAGNOSES: 1. Normal esophagus. 2. Z-line visualized. 3. Mild gastritis. 4. Erosive duodenitis. 5. Normal duodenal bulb. 6. Normal pylorus. 7. Successful placement of 24-Burkinan PEG tube placed by palpable technique, internal bumper visualized by repeat esophagogastroduodenoscopy and external bumper marked at 3 cm. ESTIMATED BLOOD LOSS: None. COMPLICATIONS: None. ANESTHESIA: Monitored anesthesia care by the anesthesiologist. SPECIMEN: None. PROCEDURE: After informed consent from the patient's and family, explaining the risks, benefits, indications, and alternatives, the patient was prepared for EGD with PEG tube placed. The risks of the procedure, including infection, bleeding, pain, trauma to the surrounding structures, perforation, , inadvertent pulling of the PEG tube., PEG tube site infection, PEG tube site bleeding, risk of aspiration were explained to the patient's family among others and they acknowledged understanding and agreed to proceed with the procedure. The patient was brought to the OR. He was turned in a supine position. A bite block was placed in the patient's mouth. After adequate monitored anesthesia care the scope was then introduced through the oral vestibule all the way to the second portion of the duodenum. Esophagus was normal the entire length. Z-line was visualized. Scope was then withdrawn to the stomach with evidence of a mild erythema in the gastric antrum. The retroflexion revealed normal fundus, cardia, and incisura. The scope was then advanced into the duodenum which showed evidence of erosions, erythema, friability in the duodenal bulb suggesting erosive duodenitis. The second portion appeared normal. There was no evidence of any pyloric stenosis. The site was selected on the external abdominal surface in the left upper quadrant using transillumination and transmittal of external finger pressure. The site was marked, cleaned, and draped under sterile conditions. Local lidocaine was injected. A finder needle was inserted and was able to see entering the stomach. Trocar with cannula was inserted to the external abdominal orifice and was seen entering the stomach endoscopically. Silk was threaded through the cannula and snared successfully. A PEG tube 24-Burkinan was then successfully pulled out. This was successfully placed using pull technique. The external bumper was marked at 3 cm. The internal bumper was visualized with repeat EGD. The site of the PEG tube was cleaned and draped and a local antibiotic ointment was applied. The area was dressed under sterile conditions. The air was aspirated as the scope was withdrawn. The patient tolerated the procedure and was monitored in the OR in stable condition. I discussed the findings with the patient's family in the waiting area and all questions answered. RECOMMENDATIONS: 1. The patient will be on aspiration precautions. PEG dressing change every day with bacitracin ointment for 1 week. 2. The patient will have on abdominal binder all the time. 3. The patient will be on Protonix once daily for the next 3-6 months for erosive duodenitis. 4. The patient will be started on PEG tube feedings for nutrition consultation. Will call Nutrition consult. 5. We will be available if any questions. Please call us with any further questions. cc: MD Germain Hansen MD [facility]
[2016-07-06] MEDS: DUONEB (A & A) INH SCH ×6 (07:30→23:09)
[2016-07-06] MEDS: MUCOMYST 20% INH SCH ×2 (07:31→19:52)
[2016-07-06] MEDS: BACTROBAN OINTMENT TOP SCH (10:30)
[2016-07-06] MEDS: THERA M PLUS PO SCH (10:31)
[2016-07-06] MEDS: FLOMAX PO SCH (10:31)
[2016-07-06] MEDS: ZOLOFT PO SCH (10:32)
[2016-07-06] MEDS: SODIUM CHLORIDE 0.9% INJ SCH (10:32)
[2016-07-06] MEDS: PROTONIX IV SCH ×2 (10:32)
--- NOTE | 2016-07-06 11:09 | PROGRESS NOTE ---
DATE: 07/06/2016 SUBJECTIVE: Patient is sleeping. His present at bedside. They have not started the PEG tube feeding yet. The dietitian recommendations reviewed and the plan is to start the patient on Glucerna and water flushes. I discussed the plan of care with the patient and his and RN. No fevers, rigors or chills reported.Vital signs: Temperature of 99.4 degrees, pulse rate of 75, respiratory rate 18, blood pressure 158/84, saturating 92% on 4 L nasal cannula. General Appearance: Thinly built, lying in bed, in no acute distress. HEENT: Pale conjunctivae. No icterus. Neck: Supple. Abdomen: Abdominal binder in place. The PEG tube site dressing was noted. I looked at the external bumper and there was some old blood around the external bumper but no evidence of any drainage or erythema noted. The abdomen was soft otherwise. Bowel sounds are present. Extremities: No cyanosis, clubbing. Neurologic: He is sleeping and he is status post CVA. LABS: His white count of 17.3, hemoglobin and hematocrit is 8.3, 25.8, platelet count of 279,000. MCV of 89.3. Sodium 136, potassium 3.7, chloride 116, bicarb of 27, anion gap 13, BUN of 52, creatinine 1.6. Glucose of 113. Calcium is 9, phosphorus 3.6, magnesium 1.9. Albumin of 2.4. ABGs, pH 7.4, PCO2 of 43, PO2 58 and 36% FiO2. Lactate of 0.7. IMPRESSION AND PLAN: 1. Pneumonia with diffuse infiltrates throughout the right lung and status post stable left pneumonectomy changes. He is currently on broad-spectrum antibiotics. 2. Dysphagia secondary to CVA status post PEG tube placement yesterday. The patient will follow up with nutrition consultation and start the patient on tube feeds. We will check residuals. 3. Hypernatremia. The primary care team needs to adjust the free fluid intake to help with the hyponatremia. 4. Renal insufficiency secondary to dehydration and needs to be closely watched by the primary care team. 5. Gastrointestinal prophylaxis with PPIs. 6. Erosive duodenitis. Continue on PPIs once daily for 3-6 months. 7. Once patient is started on nutrition per PEG tube we need to start him on some bowel regimen as well. 8. Anemia. Patient will continue on iron and multivitamin. 9. Further pending hospitalists. cc: MD Lewis Gallagher MD Kathy J. Sparacino, MD Mamoun I. Najjar, MD
[2016-07-06] MEDS ORDERED: LASIX IV ONE (11:14)
[2016-07-06] MEDS: CLINIMIX E 4.25%-5% SOLUTION 1,000 ML IV SCH (11:36)
--- NOTE | 2016-07-06 11:44 | PROGRESS NOTE ---
DATE: 07/06/2016 SUBJECTIVE: The patient is still very confused today. OBJECTIVE: Vital Signs: Blood pressure 158/84, heart rate of 75, respiratory rate 18, temperature 99.4 degrees. He is 94% on 4 L which pretty much seems like it is an increasing O2 requirement over the last 24 hours. Cardiovascular: Regular rate and rhythm. Pulmonary: Diminished breath sounds at the right base. GI: Soft, nontender, nondistended. Bowel sounds are positive. His PEG site looks clean, dry and intact. PROBLEM LIST: 1. Acute respiratory failure today. He has had progressive hypoxemia. His blood gas shows hypoxemia. Pulmonary is following. He still has significant pneumonia in the right lung. He is status post pneumonectomy. I will go ahead and give him a little bit of Lasix. He is on vancomycin and Merrem. He got a dose of Levaquin yesterday. We will continue to follow. 2. Pneumonia, presumed aspiration type. Again, he is on vancomycin and Merrem. This will be day 6 of both. 3. Hypernatremia likely from just nothing by mouth status. He has been placed on Clinimix, but has not had much improvement. I will add D 5 today. I am going to increase the free water and flushes per his G-tube and we will follow clinically. 4. Encephalopathy likely related to his other issues. 5. Chronic renal failure a little worse today may be related to dehydration issues. I initiated Toradol yesterday for pain control. We will need to stop that because of his renal insufficiency issues. He is not on any other nephrotoxic drugs. 6. Dysphagia. He is status post percutaneous endoscopic gastrostomy. We are initiating tube feeds and we will follow closely. For the time being, we will continue to monitor in step- down. cc: Lewis Lentz MD
[2016-07-06] MEDS: D5W 1,000 ML IV SCH (12:08)
[2016-07-06] MEDS: ATIVAN IV PRN (17:43)
[2016-07-06] MEDS: NUBAIN IV PRN (21:41)
[2016-07-06] MEDS: ZYPREXA ZYDIS PO SCH (22:22)
[2016-07-07] MEDS: D5W 1,000 ML IV SCH ×2 (01:54→14:26)
[2016-07-07] MEDS: MERREM 500 MG in NS 50 ML IV SCH ×2 (01:54→14:26)
[2016-07-07] MEDS: DUONEB (A & A) INH SCH ×6 (03:09→23:00)
[2016-07-07 05:08] LABS: ALLEN TEST YES; BE 7.4 mmoll (-3.0-3.0); BLOOD TYPE ARTERIAL; DRAW SITE R RADIAL; O2(CT) 10.2 mL/dL (15.0-23.0); PO2(98.6) 62 mmHg (60-100); SAMPLE BLOOD; SAO2 94.4 % (95.0-100.0); pH(98.6) 7.36 (7.35-7.45)
[2016-07-07 05:09] LABS: MODALITY CANNULA; PCO2(98.6) 60 mmHg (35-45)
[2016-07-07 05:34] LABS: BASO% 0.4 % (0.0-0.8); EOS# 0.17 X1000 (0.0-0.7); EOS% 0.7 % (0.0-10.0); HEMATOCRIT 26.4 % (42.0-52.0); HEMOGLOBIN 8.4 g/dL (14.0-18.0); IMM GRAN# 0.52 X1000 (0.0-0.04); IMM GRAN% 2.1 % (0.0-0.5); LYMPH# 1.47 X1000 (1.2-3.4); LYMPH% 5.9 % (20.5-51.1); MANUAL DIFF NEEDED? YES; MCH 28.8 PG (27-31); MCHC 31.8 g/dL (33-37); MCV 90.4 FL (81-99); MONO# 2.03 X1000 (0.11-0.59); MONO% 8.1 % (1.7-9.3); MPV 11.2 FL (7.4-10.4); NEUT% 82.8 % (42.2-75.2); PLT 279 X1000 (130-400); RBC 2.92 XMIL (4.7-6.1)
[2016-07-07] MEDS: CLINIMIX E 4.25%-5% SOLUTION 1,000 ML IV SCH ×2 (05:43→09:16)
[2016-07-07 05:53] LABS: CALCIUM 8.8 mg/dL (8.8-10.2); POTASSIUM 3.9 mmol/L (3.5-5.1)
[2016-07-07] MEDS: ATIVAN IV PRN ×2 (06:44→14:17)
[2016-07-07 07:19] LABS: BANDS 6 % (0-1); LYMPHS 8 % (21-51); MONO 8 % (1-9)
[2016-07-07] MEDS: MUCOMYST 20% INH SCH ×2 (07:40→19:10)
--- NOTE | 2016-07-07 07:56 | Diag Imaging Result Document ---
PROCEDURE NAME: CHEST-1 VIEW - 07/07/2016 ERECT AP PORTABLE CHEST: TIME: 0550 hours. FINDINGS: There is pulmonary edema throughout the right lower lung. The has been left pneumonectomy. Compared to 07/06/2016, there has been very little appreciable change. There has been very little change since 07/03/2016. IMPRESSION: Pulmonary edema, stable since previous studies.
[2016-07-07] MEDS: THERA M PLUS PO SCH (08:15)
[2016-07-07] MEDS: FLOMAX PO SCH (08:15)
[2016-07-07] MEDS: SODIUM CHLORIDE 0.9% INJ SCH (08:15)
[2016-07-07] MEDS: ZOLOFT PO SCH (08:15)
[2016-07-07] MEDS: PROTONIX IV SCH (10:53)
--- NOTE | 2016-07-07 12:56 | PROGRESS NOTE ---
DATE: 07/07/2016 SUBJECTIVE: The patient has no focal complaints but patient is much more altered than he was yesterday, almost unresponsive. OBJECTIVE: Vital Signs: Blood pressure 137/66, heart rate 79, respiratory 16, temperature degrees 98.2. Saturating 97%, he is on 6 L. Cardiovascular: Regular rate and rhythm. Pulmonary: Diffuse rhonchi and diminished at the bases. Gastrointestinal: Abdomen soft, nontender, nondistended. Bowel sounds are positive. Extremities: No clubbing or cyanosis. Lymphatics: No peripheral edema. Neurological: Nonfocal. LABORATORY DATA: White count 46[address]. Hemoglobin and hematocrit 8 and 26, platelets of 279,000. PCO2 60, sodium 151, BUN and creatinine of 64 and 1.9. Phosphorus of 5.5. Chest x-ray showed pulmonary edema about the same since previous studies. PROBLEM LIST: 1. Acute respiratory failure likely related to pneumonia. He is on vancomycin and Merrem. He has some progressive renal failure so I guess we are going to stop the vancomycin and put him on as I have Zyvox. I am going to add was Levaquin renally dosed and get Infectious Disease consult. Pulmonary is also following. He may need adjustments in his BiPAP settings. 2. Hypernatremia like they related to free water depletion. We will increase free water flushing through the NG tube. He is on D5 right now and amino acids. We will continue to follow closely. 3. Acute kidney injury. We will continue to monitor. Urine output is decent; 1450 and 3700. He has no other acute indications for kidney issues and he has chronic renal failure stage 2 at baseline. 4. Metabolic encephalopathy. We will continue to follow very closely. DISPOSITION: Pending his resolution of his multiple issues. Plan is for rehab with the vital stim therapy because of his significant dysphagia. cc: Lewis Lentz MD
[2016-07-07] MEDS: NUBAIN IV PRN ×2 (14:17→20:39)
[2016-07-07] MEDS: BACTROBAN OINTMENT TOP SCH (14:17)
[2016-07-07] MEDS: LEVAQUIN 750 MG/D5W 750 MG/150 ML IVPB IV SCH (14:26)
[2016-07-07] MEDS: ZYVOX 600 MG/D5W 600 MG/300 ML IVPB IV SCH (14:26)
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
[2016-07-07] MEDS: VFEND PO SCH (20:40)
[2016-07-07] MEDS: DULCOLAX PR SCH (20:40)
[2016-07-08] MEDS: DUONEB (A & A) INH SCH ×6 (03:01→22:53)
[2016-07-08] MEDS: MERREM 500 MG in NS 50 ML IV SCH ×2 (04:08→15:39)
[2016-07-08] MEDS: ZYVOX 600 MG/D5W 600 MG/300 ML IVPB IV SCH ×2 (04:08→15:42)
[2016-07-08] MEDS: CLINIMIX E 4.25%-5% SOLUTION 1,000 ML IV SCH ×3 (04:08→23:59)
[2016-07-08 05:07] LABS: ALLEN TEST YES; BE 6.8 mmoll (-3.0-3.0); BLOOD TYPE ARTERIAL; DRAW SITE R RADIAL; METHB 1.6 % (0.0-1.5); O2(CT) 13.7 mL/dL (15.0-23.0); PCO2(98.6) 47 mmHg (35-45); PO2(98.6) 55 mmHg (60-100); SAMPLE BLOOD; SAO2 92.6 % (95.0-100.0); THB 10.9 g/dL (11.5-17.4); pH(98.6) 7.44 (7.35-7.45)
[2016-07-08 05:13] LABS: MODALITY CANNULA
[2016-07-08 05:29] LABS: BASO% 0.4 % (0.0-0.8); EOS# 0.25 X1000 (0.0-0.7); EOS% 0.9 % (0.0-10.0); HEMATOCRIT 26.2 % (42.0-52.0); HEMOGLOBIN 8.3 g/dL (14.0-18.0); IMM GRAN# 0.55 X1000 (0.0-0.04); LYMPH# 1.86 X1000 (1.2-3.4); LYMPH% 6.6 % (20.5-51.1); MANUAL DIFF NEEDED? YES; MCH 28.4 PG (27-31); MCHC 31.7 g/dL (33-37); MCV 89.7 FL (81-99); MONO# 1.93 X1000 (0.11-0.59); MONO% 6.9 % (1.7-9.3); MPV 11.1 FL (7.4-10.4); NEUT% 83.2 % (42.2-75.2); PLT 249 X1000 (130-400); RBC 2.92 XMIL (4.7-6.1)
[2016-07-08 05:44] LABS: BANDS 6 % (0-1); LYMPHS 6 % (21-51); MONO 8 % (1-9)
[2016-07-08 05:58] LABS: CALCIUM 8.5 mg/dL (8.8-10.2); MAGNESIUM 1.9 mg/dL (1.5-2.7); POTASSIUM 3.9 mmol/L (3.5-5.1)
[2016-07-08] MEDS: D5W 1,000 ML IV SCH ×2 (06:35→08:43)
[2016-07-08] MEDS: MUCOMYST 20% INH SCH ×2 (07:15→19:42)
--- NOTE | 2016-07-08 07:58 | Diag Imaging Result Document ---
PROCEDURE NAME: CHEST-PORTABLE - 07/08/2016 SEMIUPRIGHT AP PORTABLE CHEST: COMPARISON: 07/10/2016. FINDINGS: There is opacification of the left hemithorax. The mediastinum is shifted from the right to the left. There are dense infiltrates in the mid and lower right lung. The overall appearance is fairly similar to that of the prior exam considering the differences in technique. IMPRESSION: No interval improvement. Infiltrates in the right base may in fact be slightly more dense than the prior study.
[2016-07-08] MEDS: ZOLOFT PO SCH (08:43)
[2016-07-08] MEDS: THERA M PLUS PO SCH (08:43)
[2016-07-08] MEDS: VFEND PO SCH ×2 (08:43→19:52)
[2016-07-08] MEDS: BACTROBAN OINTMENT TOP SCH (08:44)
[2016-07-08] MEDS: ATIVAN IV PRN ×2 (10:02→16:34)
[2016-07-08] MEDS: SODIUM CHLORIDE 0.9% INJ SCH (10:02)
[2016-07-08] MEDS: PROTONIX IV SCH (10:02)
[2016-07-08] MEDS: HALDOL IV PRN (11:38)
[2016-07-08] MEDS ORDERED: D5W 1,000 ML IV SCH (11:40)
--- NOTE | 2016-07-08 12:17 | PROGRESS NOTE ---
DATE: 07/08/2016 SUBJECTIVE: The patient has no focal complaints. OBJECTIVE: Vital Signs: Blood pressure 142/57, heart rate of 81, respiratory rate of 16, temp 98.5 degrees, 94% on 6 L. Cardiovascular: Regular rate and rhythm. Pulmonary: Bilateral breath sounds. Clear to auscultation. Diminished breath sounds at the bases Gastrointestinal: Abdomen soft, nontender, nondistended. Bowel sounds are positive. Neurologic: Mental status is much more improved. He is awake, alert, oriented, still intermittently confused though but much improved, overall. LABORATORY DATA: White count is still up at 28,000 with an hemoglobin and hematocrit of 8 and 26, platelets 249,000. Chemistry: BUN and creatinine still high at 71 and 2.2. Sodium was down to 144. PROBLEM LIST: 1. Acute respiratory failure secondary to aspiration pneumonia. We will continue breathing treatments. He is on Mucomyst. We will add incentive spirometry and chest physiotherapy to aid in improving his infiltrates. 2. Significant dysphagia. We will continue treatment with bypass and tube feeds. 3. Persistent leukocytosis likely related to severe aspiration pneumonia. Dr. Wright has been consulted. We placed him on Zyvox. He is on Merrem, Levaquin renally dosed and then now for voriconazole for possible Aspergillus. Pulmonary is also following. 4. Metabolic encephalopathy, appears to be improving. 5. Patient has acute kidney injury PLAN: We will continue to follow. Continue hydration. Check urine electrolytes. I am going to go ahead and pursue a renal ultrasound as well and continue fluids. He is getting Clinimix and D5 right now. His hypernatremia has greatly improved. DISPOSITION: Pending multiple issues. Plan will be for rehab for VitalStim therapy. cc: Lewis Lentz MD
[2016-07-08] MEDS: DULCOLAX PR SCH (12:52)
[2016-07-08] MEDS: DULCOLAX PR ONE ×2 (13:22→13:23)
[2016-07-08 14:35] LABS: UR CREAT RANDOM 44.6 mg/dL (14-26); UR PROT RANDOM 49.4 mg/dL
--- NOTE | 2016-07-08 16:58 | Diag Imaging Result Document ---
PROCEDURE NAME: US RENAL 2 (RETROPER) COMPLETE - 07/08/2016 RENAL ULTRASOUND: FINDINGS: The right kidney measures 10.4 x 4.6 x 5.3 cm. Mild increased renal echogenicity. Normal cortical thickness. No stone or hydronephrosis. No renal mass. A Gill catheter has been the urinary bladder decompressed. The left kidney is poorly seen. IMPRESSION: Mild increased renal echogenicity which can be seen with medical renal disease.
--- NOTE | 2016-07-08 21:14 | PROGRESS NOTE ---
DATE: 07/08/2016 SUBJECTIVE: Patient currently resting in bed. He is still altered mental status. He is status post CVA. His white count is getting worse. ID has seen the patient and they suspect a fungal infection in the lungs. ID has added voriconazole to the current antibiotic regimen. He spiked a temperature of 99.8 degrees today. He also was having trouble with his G-tube feeds. High residuals of 140 mL were noted and his PEG tube feeds are going 10 mL per hour. He had not had a bowel movement for many days and after Dulcolax suppository, he had a very small bowel movement this morning per the patient's family. They did not notice any blood in the stools. OBJECTIVE: Vital signs: Temperature 99.8, pulse rate of 92, respiratory rate of 22, blood pressure 118/67, saturating 92% on nasal cannula 6 L. General appearance: Thinly built, lying in bed, in no acute distress. HEENT: Pale conjunctivae. No icterus. Neck: Supple. Abdomen: Abdominal binder in place. PEG tube site appeared normal. No drainage or erythema note at the PEG tube site. Abdomen is soft, otherwise bowel sounds are present. Extremities: No cyanosis, clubbing. Neurologic: He is currently sleepy and did not verbalize. LABORATORY DATA: Hemoglobin and hematocrit is 8.3, 26.2, white count of 28.05, platelet count of 249,000. MCV of 89.7, INR 0.98, sodium 144, potassium 3.9, chloride 102, bicarbonate 30 ,anion gap 12, BUN of 71, creatinine of 2.2, glucose of 113 calcium of 8.5, magnesium 1.9. IMPRESSION AND PLAN: 1. High tube feed residuals. I believe it could be secondary to sepsis pneumonia and constipation. His sepsis and pneumonia is being managed by the primary team and ID team. We will give him another dose of Dulcolax suppository now and we will start him on MiraLAX once a day through the PEG tube. He will continue aspiration precautions. 2. He will continue on PPIs once daily for duodenitis 3. Pneumonia and leukocytosis. Per the primary care team. Malnutrition continue on Clinimix until the tube feed goal is reached. The above plan of care was discussed with the patient's family at bedside. I also discussed with Dr. Lentz. cc: MD Lewis Gallagher MD Mamoun I. Najjar, MD Leroy F. Harris, MD Kathy J. Sparacino, MD
[2016-07-08] MEDS: NUBAIN IV PRN (22:20)
[2016-07-08] MEDS ORDERED: TYLENOL PO PRN (23:57)
[2016-07-09] MEDS: ZYVOX 600 MG/D5W 600 MG/300 ML IVPB IV SCH ×2 (02:26→17:05)
[2016-07-09] MEDS: MERREM 500 MG in NS 50 ML IV SCH ×2 (02:26→17:05)
[2016-07-09] MEDS: DUONEB (A & A) INH SCH ×6 (02:52→22:52)
[2016-07-09 04:49] LABS: ALLEN TEST YES; BE 3.7 mmoll (-3.0-3.0); BLOOD TYPE ARTERIAL; DRAW SITE R RADIAL; METHB 1.4 % (0.0-1.5); O2(CT) 12.2 mL/dL (15.0-23.0); PCO2(98.6) 47 mmHg (35-45); PO2(98.6) 62 mmHg (60-100); SAMPLE BLOOD; SAO2 94.2 % (95.0-100.0); THB 9.5 g/dL (11.5-17.4)
[2016-07-09 04:50] LABS: MODALITY NRB
[2016-07-09] MEDS: CLINIMIX E 4.25%-5% SOLUTION 1,000 ML IV SCH ×2 (05:33→19:39)
[2016-07-09 05:36] LABS: BASO% 0.2 % (0.0-0.8); EOS# 0.04 X1000 (0.0-0.7); EOS% 0.1 % (0.0-10.0); HEMATOCRIT 21.5 % (42.0-52.0); HEMOGLOBIN 6.9 g/dL (14.0-18.0); IMM GRAN# 0.58 X1000 (0.0-0.04); IMM GRAN% 1.7 % (0.0-0.5); LYMPH# 1.52 X1000 (1.2-3.4); LYMPH% 4.5 % (20.5-51.1); MANUAL DIFF NEEDED? YES; MCH 28.4 PG (27-31); MCHC 32.1 g/dL (33-37); MCV 88.5 FL (81-99); MONO% 5.9 % (1.7-9.3); MPV 11.6 FL (7.4-10.4); NEUT% 87.6 % (42.2-75.2); PLT 332 X1000 (130-400); RBC 2.43 XMIL (4.7-6.1)
[2016-07-09 05:43] LABS: LYMPHS 2 % (21-51); MONO 2 % (1-9)
[2016-07-09 05:44] LABS: POTASSIUM 3.8 mmol/L (3.5-5.1)
[2016-07-09] MEDS: MUCOMYST 20% INH SCH (08:21)
[2016-07-09] MEDS: VFEND PO SCH (09:06)
[2016-07-09] MEDS: MIRALAX PEG SCH (09:06)
[2016-07-09] MEDS: SODIUM CHLORIDE 0.9% INJ SCH (09:07)
[2016-07-09] MEDS: ZOLOFT PO SCH (09:07)
[2016-07-09] MEDS: PROTONIX IV SCH ×2 (09:07→09:19)
[2016-07-09] MEDS: THERA M PLUS PO SCH (09:07)
[2016-07-09] MEDS: BACTROBAN OINTMENT TOP SCH (09:07)
[2016-07-09] MEDS ORDERED: NS IV SCH ×2 (12:15)
[2016-07-09] MEDS ORDERED: VFEND IV SCH ×2 (12:15)
[2016-07-09] MEDS ORDERED: NS 1,000 ML IV ONE (12:20)
[2016-07-09] MEDS ORDERED: DIPRIVAN 1% 1,000 MG/100 ML BOTTLE IV SCH (12:38)
[2016-07-09] MEDS ORDERED: VERSED ONE (12:42)
[2016-07-09] MEDS ORDERED: MORPHINE ONE (12:42)
[2016-07-09 12:46] LABS: BASO% 0.2 % (0.0-0.8); EOS# 0.01 X1000 (0.0-0.7); HEMATOCRIT 26.4 % (42.0-52.0); HEMOGLOBIN 8.7 g/dL (14.0-18.0); IMM GRAN% 1.4 % (0.0-0.5); LYMPH# 1.97 X1000 (1.2-3.4); LYMPH% 4.7 % (20.5-51.1); MANUAL DIFF NEEDED? YES; MCH 29.1 PG (27-31); MCV 88.3 FL (81-99); MPV 11.5 FL (7.4-10.4); NEUT% 88.7 % (42.2-75.2); PLT 413 X1000 (130-400); RBC 2.99 XMIL (4.7-6.1)
[2016-07-09 12:53] LABS: INR 1.14; LYMPHS 4 % (21-51); MONO 6 % (1-9); PROTIME 12.1 Seconds (9.2-11.7)
[2016-07-09 12:54] LABS: HYPOCHROM 2+
[2016-07-09 12:55] LABS: BANDS 3 % (0-1)
[2016-07-09] MEDS ORDERED: SOLU-MEDROL IV SCH (13:00)
[2016-07-09] MEDS ORDERED: NS 250 ML ONE ×2 (13:23→15:17)
--- NOTE | 2016-07-09 13:29 | Diag Imaging Result Document ---
PROCEDURE NAME: PHILIP ABDOMEN - 07/09/2016 PORTABLE AP SUPINE ABDOMEN: FINDINGS: There is a gastrostomy tube with its tip at the medial left mid abdomen. There is oral contrast in distal small bowel and right colon. The bowel gas pattern otherwise appears nonspecific and nonobstructive. There is some retained fecal debris in the left colon. There are lumbar dextroscoliosis and spondylosis noted. IMPRESSION: Nonspecific bowel gas pattern. Oral contrast in distal small bowel and right colon. Retained fecal debris in left colon which may relate to constipation.
--- NOTE | 2016-07-09 13:30 | Diag Imaging Result Document ---
PROCEDURE NAME: CHEST-PORTABLE - 07/09/2016 PORTABLE CHEST: FINDINGS: Compared with 07/08/2016. There are post surgical changes of left pneumonectomy similar to the previous exam. There is fairly extensive infiltrate on the right which is increased mildly. There is some sparing at the right apex. There is no substantial right pleural effusion or pneumothorax identified. IMPRESSION: Mild increase in infiltrate on the right. This is suspicious for pneumonia.
--- NOTE | 2016-07-09 13:59 | PROGRESS NOTE ---
DATE: 07/09/2016 SUBJECTIVE: The patient is very weak and confused OBJECTIVE: Vital Signs: Blood pressure 116/63, heart rate 78, respiratory rate is 2, temperature was 99.1 degrees. Satting 92% on 100%. Cardiovascular: Tachy. Pulmonary: Diffuse rhonchi much worse on the right with increased work of breathing. Abdomen: Soft, distended, bowel sounds diminished. LABORATORY DATA: White count up to 33,000. Hemoglobin and hematocrit 6.9 and 21.5. Platelets of 332,000. Blood gas 7.4, pCO2 47, PaO2 62. 94A% on 100% non-rebreather. Creatinine is up to 2.8 with a BUN of 84, chest x-ray is pending. PROBLEM LIST: 1. Acute respiratory failure likely secondary to recurrent aspiration pneumonia. Obviously, he is progressing. I think he is going to probably end up requiring mechanical ventilation. Pulmonary is going to follow .I am going to monitor and repeat his chest x-ray today. He is on very broad-spectrum therapy already, vancomycin, Merrem, linezolid and voriconazole. 2. Acute kidney injury is progressing despite hydration. He has been on Clinimix and D5 for his hyponatremia but his kidney function continues to deteriorate. We will get a renal opinion although I think this is likely related to sepsis although his urine sodium is fairly low so suggesting that perhaps dehydrated. I am going to give him a fluid bolus and see how he does from that standpoint. 3. Dysphagia. Again he is having some dysphagia issues related to likely previous stroke. We will continue to follow. 4. Intraparenchymal hemorrhage. He is status post PEG tube. 5. Ileus. He is apparently not tolerating tube feeds and having ileus issues. We will repeat plain films. Obviously, we are going to hold his tube feeds for the time being and follow clinically. DISPOSITION: Obviously condition is deteriorating. He will likely need mechanical ventilation. I am going to transfer him to the ICU for closer monitoring. Pulmonary, infectious disease is already consulted as well as GI for his G-tube and ileus and again nephrology will further evaluate his kidney failure issues. cc: Lewis Lentz MD
[2016-07-09] MEDS ORDERED: DULCOLAX PR ONE (14:31)
[2016-07-09] MEDS: LEVAQUIN 750 MG/D5W 750 MG/150 ML IVPB IV SCH (16:49)
[2016-07-09] MEDS: ATIVAN IV PRN (16:52)
--- NOTE | 2016-07-09 16:57 | PROGRESS NOTE ---
DATE: 07/09/2016 see the completed note dated 07-09-16 cc: Germain Beatty MD MTDD
--- NOTE | 2016-07-09 17:27 | Diag Imaging Result Document ---
PROCEDURE NAME: CHEST/ABD TUBE PLACEMENT - 07/09/2016 PORTABLE EXAM FOR NASOGASTRIC TUBE PLACEMENT AT 1615 HOURS: FINDINGS: The tip of the nasogastric tube is at the expected location of the mid stomach. IMPRESSION: Nasogastric tube extending to the mid stomach. Verbal results were provided to nurse Alex at 4:34 PM on 07/09/2016.
[2016-07-09] MEDS: NS IV SCH (21:57)
[2016-07-09] MEDS: VFEND IV SCH (21:57)
[2016-07-09] MEDS: DULCOLAX PR SCH (21:57)
[2016-07-10] MEDS: MERREM 500 MG in NS 50 ML IV SCH ×2 (01:43→14:43)
[2016-07-10] MEDS: ZYVOX 600 MG/D5W 600 MG/300 ML IVPB IV SCH ×2 (03:09→15:29)
[2016-07-10] MEDS ORDERED: DILAUDID IV PRN (04:53)
[2016-07-10 05:44] LABS: BASO% 0.1 % (0.0-0.8); EOS# 0.01 X1000 (0.0-0.7); HEMATOCRIT 22.2 % (42.0-52.0); HEMOGLOBIN 7.6 g/dL (14.0-18.0); IMM GRAN# 0.43 X1000 (0.0-0.04); IMM GRAN% 1.1 % (0.0-0.5); LYMPH# 1.57 X1000 (1.2-3.4); LYMPH% 4.1 % (20.5-51.1); MANUAL DIFF NEEDED? YES; MCH 28.8 PG (27-31); MCHC 34.2 g/dL (33-37); MCV 84.1 FL (81-99); MONO# 2.36 X1000 (0.11-0.59); MONO% 6.1 % (1.7-9.3); MPV 11.4 FL (7.4-10.4); NEUT% 88.6 % (42.2-75.2); PLT 373 X1000 (130-400); RBC 2.64 XMIL (4.7-6.1)
[2016-07-10 05:45] LABS: CALCIUM 8.1 mg/dL (8.8-10.2); POTASSIUM 3.8 mmol/L (3.5-5.1)
[2016-07-10 06:10] LABS: BANDS 4 % (0-1); LYMPHS 4 % (21-51); MONO 6 % (1-9)
--- NOTE | 2016-07-10 06:14 | PROGRESS NOTE ---
DATE: 07/09/2016 DATE: 07/09/2016 SUBJECTIVE: Patient is currently not doing well. He developed worsening respiratory distress, worsening white count, and was transferred to the ICU bed 2 per the primary care team. He had a high feeding tube residuals and his feeding tubes were withheld. He had an x- ray done of the abdomen done today which showed evidence of retained stool in the left colon. He had minimal bowel movements with Dulcolax for the last 2 days. There is a question that he might still be aspirating or his pneumonia is getting worse. He has a history of prior smoking for 40 years and quit at age 52. He is being by the pulmonology team. He is on broad-spectrum antibiotics and antifungals. ID team is also following him. The family has decided not to pursue intubation or ventilation. OBJECTIVE: Vital signs: Temperature of 99.2 degrees, pulse rate of 106, respiratory rate of 33, blood pressure 94/60, saturating 84% on non-rebreather, 50% FiO2. General appearance: Thinly built, lying in bed, in respiratory distress, has a non-rebreather mask. HEENT : Pale conjunctivae. No icterus. Non-rebreather mask on the face. Neck: Showing signs of respiratory distress. Chest: Gurgling sounds can be heard. Cardiovascular: Tachycardic. Abdomen: Abdominal binder is in place. I visualized the PEG tube site which appeared normal. There was no drainage or redness around the PEG tube site. Abdomen is soft otherwise. Bowel sounds hypoactive. Extremities: No cyanosis, clubbing. Neurologic: He is confused and has some spontaneous movements but does not answer any questions. LABS: His white count of 41.91, hemoglobin and hematocrit are 8.7 and 26.4, platelet count of 413,000, MCV of 88.3. INR 1.14. Sodium 140, potassium 3.8, chloride 99, bicarb 29, anion gap 13, BUN of 84, creatinine of 2.8, glucose of 111. LABORATORY: The blood cultures were negative after 5 days. IMPRESSION AND PLAN: 1. Sepsis with worsening pneumonia and leukocytosis despite being on multiple antibiotics. Pulmonary Team, Infectious Disease team and primary care team are following. 2. High PEG tube residuals likely secondary ileus and constipation and sepsis. At this point, we will hold feeding tube. He will continue on Clinimix. 3. Constipation. We will continue on Dulcolax. We will give him one more dose today and then give one at bedtime. 4. Acute kidney injury which is worsening. Patient is on fluids per the Primary Care Team. 5. Overall, patient's condition is deteriorating. I discussed in detail with the patient's family at bedside. We will follow along. Please call us with any questions. I also discussed the plan with Dr. Lentz. cc: MD Lewis Gallagher MD [facility]
[2016-07-10] MEDS: HALDOL IV PRN (06:27)
[2016-07-10] MEDS: DUONEB (A & A) INH SCH ×6 (07:47→23:05)
[2016-07-10] MEDS: NS IV SCH ×2 (09:14→20:13)
[2016-07-10] MEDS: VFEND IV SCH ×2 (09:14→20:13)
[2016-07-10] MEDS: BACTROBAN OINTMENT TOP SCH (09:14)
[2016-07-10] MEDS: MIRALAX PEG SCH (09:15)
[2016-07-10] MEDS: SODIUM CHLORIDE 0.9% INJ SCH (09:15)
[2016-07-10] MEDS: PROTONIX IV SCH (09:15)
[2016-07-10] MEDS ORDERED: FLEET MINERAL OIL ENEMA PR ONE (10:36)
[2016-07-10] MEDS ORDERED: RELISTOR SUBQ ONE (10:36)
[2016-07-10] MEDS ORDERED: NS 500 ML IV ONE (10:37)
--- NOTE | 2016-07-10 10:59 | PROGRESS NOTE ---
DATE: 07/10/2016 SUBJECTIVE: The patient has no focal complaints. OBJECTIVE: Blood pressure is 97/52, heart rate 96, respiratory rate 25, temperature 97.6, saturation 82% on 100% BiPAP. T-max is 100.2. Cardiovascular: Tachycardic. Pulmonary: Diffuse rales. GI: Soft, nontender and nondistended. Bowel sounds were positive and diminished. DIAGNOSTIC DATA: White count is 38,000, hemoglobin and hematocrit are 7 and 22, platelets 373. BUN and creatinine are 101 and 3. ASSESSMENT: 1. Acute respiratory failure secondary to recurrent aspiration pneumonia. He is still very ill, and his oxygen levels are still very low. We are going to do a trial of BiPAP to see if may help a little bit with his breathing, give him some end expiratory pressure and alveolar recruitment, but unfortunately I am not hopeful that will make much of a difference. The stated that he did not want to be on prolonged life support or intubated at this point, so we have not done that. 2. Aspiration pneumonia. He is on Merrem day 9, voriconazole day 2, linezolid day 4, Levaquin day 4 and just not much improved. 3. Severe malnutrition. Holding NG tubes. TPN I think will be ordered per Dr. Beatty. 4. Ileus. We will continue bowel regimen and follow closely. He has likely developed a secondary ileus. DISPOSITION: Frankly, I think the patient is just not recovering. His kidney function continues to deteriorate. The chances of him surviving hospitalization I think are minimal, with good recovery even less, and I think we are discussing with the family about possibly transitioning to Hospice care. He is already a DNR 2. cc: Lewis Lentz MD
[2016-07-10] MEDS: CLINIMIX E 4.25%-5% SOLUTION 1,000 ML IV SCH (11:07)
--- NOTE | 2016-07-10 11:46 | Diag Imaging Result Document ---
PROCEDURE NAME: CHEST-PORTABLE - 07/10/2016 PORTABLE CHEST X-RAY: COMPARISON: 07/09/2016. FINDINGS: There is a new nasogastric tube with the tip in the stomach. Stable extensive infiltrate on the right. Stable left pneumonectomy. IMPRESSION: No complication. No significant change from prior.
[2016-07-10] MEDS: ATIVAN IV PRN ×2 (14:17→22:51)
--- NOTE | 2016-07-10 16:06 | PROGRESS NOTE ---
DATE: 07/10/2016 SUBJECTIVE: The patient is currently lying in bed. He is on a non-rebreather mask, 100% FiO2, but his oxygen saturations are in the low 80s. He is able to wake up his eye spontaneously, but was not able to verbalize. His condition is steadily deteriorating. He is a DNR Level 1. According to the nurse, he had worsening respiratory status overnight. OBJECTIVE: Vital Signs: Temperature 97.6, pulse of 100, respiratory rate 20, blood pressure of 86/51, saturating 80% on BiPAP, 100% FiO2. General appearance: Thinly built, lying in bed, in respiratory distress. He has a Bi-PAP face mask. He opens his eyes spontaneously. Is not able to answer any questions. HEENT: Pale conjunctivae. No icterus. Neck: Supple. Chest: Gurgling sounds are being are from the chest. Abdomen: Abdominal binder in place. Otherwise, the abdomen soft. PEG tube in place. Extremities: No cyanosis or clubbing. Neurologic: Neurological-yost, he is minimally responsive. LABS: His hemoglobin and hematocrit is 7.6, 22.2. White count of 38.6, platelet count of 373,000. MCV 84.1. INR 1.14. Sodium 140, potassium 3.8, chloride 99, bicarb 25, anion gap 17, BUN of 101, creatinine of 3. Glucose of 115, calcium 8.1. Chest x-ray done today showed new nasogastric tube with tip in the stomach, stable extensive infiltrate in the right, stable left pneumonectomy. Abdominal x-ray done on 07/09 showed nonspecific bowel gas pattern, oral contrast in distal small bowel and right colon, retained fecal debris in the colon which may be related to constipation. IMPRESSION AND PLAN: 1. Sepsis with worsening pneumonia and leukocytosis, on multiple antibiotics and antifungal. Pulmonary team, primary care team, and infectious team are following. The patient is steadily deteriorating. He is a do not resuscitate Level 1. His overall prognosis is poor at this point. 2. High PEG tube residuals, likely secondary to ileus and constipation and sepsis at this point. The PEG tube feedings have been held. He is on CliniMIX IV. He is getting some Dulcolax and enemas to help with the constipation. 3. Constipation as above. Continue Dulcolax and enemas. 4. Acute kidney injury, which is worsening. Patient getting fluids per the primary care team. 5. Aspiration pneumonia with worsening respiratory status. The family has decided not to pursue intubation and aggressive measures. The above findings discussed with the patient's nurse and Dr. Lentz and all questions were answered. cc: MD Germain Hansen MD
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
[2016-07-10] MEDS: DULCOLAX PR SCH (20:10)
[2016-07-10] MEDS: LACTULOSE NG SCH (20:10)
--- NOTE | 2016-07-10 22:21 | PROGRESS NOTE ---
DATE: 07/10/2016 PRESENT ILLNESS: The patient appears to have an overwhelming right lung pneumonia MEDICATIONS: The patient has had 9 days of meropenem, 3 days of Levaquin, 2 days of Zyvox and 3 days of voriconazole. PHYSICAL EXAMINATION: Vital Signs: Temperature is 98.9 degrees, pulse 92, respirations 25, blood pressure 100/62. General: This is a very ill-appearing, middle-aged male. He is wearing a BiPAP mask. Lungs: Clear to auscultation. Cardiovascular: Regular heart rate. Abdomen: Soft and nontender. Neurologic: The patient is obtunded. LAB AND X-RAY: Chest x-ray shows continued right lung opacification. The patient's CBC shows a white count of 38,660, hemoglobin 7.6 and platelet count 373,000. Creatinine is 3. GFR is 21. IgG and IgA are elevated. Blood and urine cultures are negative. Sputum is growing a normal ofe. ASSESSMENT AND PLAN: Patient has an overwhelming pulmonary process. I have discontinued meropenem and I plan to continue with Zyvox which is day 2 of it, Levaquin which is day 3 of it and voriconazole which is also day 3 of it. COMORBIDITY: He has had a left pneumonectomy and he has severe COPD and has also had an intracranial bleed. The patient did also previously smoked quite a bit and still smokes marijuana. cc: Olivier Wright MD MTD
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
[2016-07-11] MEDS: CLINIMIX E 4.25%-5% SOLUTION 1,000 ML IV SCH (00:37)
[2016-07-11] MEDS: ZYVOX 600 MG/D5W 600 MG/300 ML IVPB IV SCH (02:43)
[2016-07-11] MEDS: DUONEB (A & A) INH SCH ×2 (03:51→08:00)
[2016-07-11] MEDS: ATIVAN IV PRN (04:11)
[2016-07-11 05:48] LABS: BASO% 0.1 % (0.0-0.8); HEMATOCRIT 26.7 % (42.0-52.0); HEMOGLOBIN 9.3 g/dL (14.0-18.0); IMM GRAN# 0.48 X1000 (0.0-0.04); LYMPH# 1.02 X1000 (1.2-3.4); LYMPH% 2.2 % (20.5-51.1); MANUAL DIFF NEEDED? YES; MCH 29.1 PG (27-31); MCHC 34.8 g/dL (33-37); MCV 83.4 FL (81-99); MONO# 2.03 X1000 (0.11-0.59); MONO% 4.3 % (1.7-9.3); MPV 11.5 FL (7.4-10.4); NEUT% 92.4 % (42.2-75.2); PLT 443 X1000 (130-400)
[2016-07-11 05:58] LABS: CALCIUM 8.3 mg/dL (8.8-10.2); POTASSIUM 4.2 mmol/L (3.5-5.1)
[2016-07-11 07:11] LABS: LYMPHS 2 % (21-51); MONO 4 % (1-9)
[2016-07-11 07:12] LABS: HYPOCHROM OCCASIONAL
--- NOTE | 2016-07-11 08:26 | Diag Imaging Result Document ---
PROCEDURE NAME: CHEST-PORTABLE - 07/11/2016 PORTABLE CHEST X-RAY: COMPARISON: 07/10/2016. FINDINGS: There is worsening of the diffuse right-sided infiltrate. Stable support tubes. IMPRESSION: Worsening in the diffuse infiltrate/pneumonia throughout the right lung.
[2016-07-11 08:43] LABS: ALLEN TEST YES; BE -1.7 mmoll (-3.0-3.0); BLOOD TYPE ARTERIAL; DRAW SITE R RADIAL; METHB 1.7 % (0.0-1.5); O2(CT) 10.8 mL/dL (15.0-23.0); PCO2(98.6) 49 mmHg (35-45); SAMPLE BLOOD; THB 9.3 g/dL (11.5-17.4); pH(98.6) 7.31 (7.35-7.45)
[2016-07-11 08:45] LABS: MODALITY BI PAP; PO2(98.6) 46 mmHg (60-100)
[2016-07-11] MEDS: LACTULOSE NG SCH (09:03)
[2016-07-11] MEDS: MIRALAX PEG SCH (09:03)
[2016-07-11] MEDS: BACTROBAN OINTMENT TOP SCH (09:03)
[2016-07-11] MEDS: SODIUM CHLORIDE 0.9% INJ SCH (09:03)
[2016-07-11] MEDS: VFEND IV SCH (09:23)
[2016-07-11] MEDS: NS IV SCH (09:23)
[2016-07-11] MEDS: PROTONIX IV SCH (09:23)
[2016-07-11] MEDS ORDERED: ATIVAN IV PRN (10:11)
[2016-07-11] MEDS: DILAUDID IV PRN ×2 (10:35→12:46)
--- NOTE | 2016-07-11 12:22 | PROGRESS NOTE ---
DATE: 07/11/2016 SUBJECTIVE: Patient is a little bit more responsive today but still very confused. OBJECTIVE: Vital signs: Blood pressure 94/46, heart rate of 90, respiratory rate 26, temperature 99.3 degrees, 85% on BiPAP, 69% off BiPAP. Cardiovascular: Regular rate and rhythm. Pulmonary: Bilateral breath sounds. Clear to auscultation. GI: Soft, nontender, nondistended. Bowel sounds are positive. LABORATORY DATA: White count is up other 47,000, hemoglobin and hematocrit are 9 and 26, platelets of 443,000. BUN and creatinine are 131 and 3.7. Chest x-ray shows worsening infiltrates. PROBLEM LIST: 1. Acute respiratory failure secondary to recurrent aspiration pneumonia and volume overload. Patient has not responded to BiPAP. Family understands the poor prognosis. 2. Acute kidney injury. also states that he was not interested in dialysis at this point. Progressive shock. Continue to follow. 3. Disposition. Pending code status. Discussion already in terms of care. I think the patient is going to no matter what we do at this point. Hospice care, palliative care I think is appropriate since they are not wanting mechanical ventilation and dialysis, which at this point are the only things that would potentially sustain this patient, although he is still at high risk. This is an unfortunate case. cc: Lewis Lentz MD
--- NOTE | 2016-07-11 12:34 | PROGRESS NOTE ---
DATE: 07/11/2016 ADVANCE CARE DIRECTIVE: Discussed with and brother. Patient is actively dying. He is on BiPAP with respiratory failure and low saturations, progressive kidney failure, and developing sepsis associated with pneumonia. I have discussed the poor prognosis with the family and they are willing to proceed with comfort care measures at this point. We will transition him to hospice care. Patient is already a DNR. cc: Lewis Lentz MD
[2016-07-11 12:53] VITALS: BP 62/30
--- NOTE | 2016-07-11 15:03 | PROGRESS NOTE ---
DATE: 07/11/2016 TIME SEEN: 0745. SUBJECTIVE: Mr. Cobb is resting quietly in bed. He remains on BiPAP. He has minimal response to verbal or tactile stimuli. OBJECTIVE: Vital signs: His most recent vital signs, temperature 99.3 degrees , blood pressure 94/46, heart rate 90, respirations 28. He remains on 100% BiPAP. Last recorded saturation is 85%. He has had 3245 in. He has had 1380 out. He is 7 L positive. Labs: Sodium 143, potassium 4.2, chloride 100, CO2 22, BUN 131, creatinine 3.7, glucose 109, anion gap 21, calcium 8.3. White count 47.07, hemoglobin 9.3, hematocrit 26.7, platelet count 443, 000. PHYSICAL EXAMINATION: General: This is a 65-year-old white male. He is critically ill. He remains unresponsive. He remains on BiPAP support. He is a DNR level 1. HEENT : Normocephalic, atraumatic. Mucous membranes dry. Neck: Supple. Trachea midline. No JVD. Cardiovascular: Regular rate and rhythm. No appreciable murmur or gallop. Lungs: Diminished breath sounds posterior with scattered rhonchi bilateral. Remains on BiPAP. Abdomen: Soft, nontender. Positive bowel sounds. Genitourinary: Minimal urine per Gill catheter. Extremities: Have 1+ lower extremity edema. No clubbing or cyanosis. Integumentary: Skin is warm and dry. No rashes or lesions evident. Neurological: As mentioned above. ASSESSMENT AND PLAN: Acute kidney injury. Patient has a FENa score of 0.43%. He remains in fluid volume overload in appearance with 7 L positive in the last 48 hours. Patient is a DNR level 1. Family has had a discussion yesterday with hospice care/palliative care nurse. They have decided to place patient in hospice with possible removal of his BiPAP later today. There are no indications for further intervention. Family has requested no further interventions in regards with dialysis per his nurse. We will sign off at this time. I would like to thank you for allowing us to follow with this patient. Seen, data reviewed, discussed with Calista Griffith on 07/11/16. I agree with the above assessment and plan of care. rg Dictated by LUCIA Loya for Hollis Lozada MD cc: LUCIA Loya MD [facility]
--- NOTE | 2016-07-11 17:03 | PALLIATIVE CARE PROGRESS NOTE ---
DATE: 07/11/2016 SUBJECTIVE: Mr. Cobb has did not make any improvement during the night. He seems less responsive today. His family is at the bedside. OBJECTIVE: General: This is a 65-year-old, terminally ill-appearing, male, who appears to have some mild respiratory distress. Cardiovascular: Regular rate and rhythm. Pulmonary: Lung sounds are diminished. Respirations are slightly labored. Abdomen: Soft. Extremities: Pulses are palpable. ASSESSMENT AND PLAN: A tandem visit was made with Dr. Lentz to discuss the patient's current state of health. The family has decided to proceed with comfort measures only. Mr. Cobb is a DNR level 1. Palliative performance scale appears to be 10%. The palliative care team will continue to follow. Dictated by LUCIA Serra for River Escalante MD cc: LUCIA Serra MD
--- NOTE | 2016-07-20 14:19 | DISCHARGE SUMMARY ---
ADMISSION DATE: 07/01/2016 DISCHARGE DATE: 07/11/2016 CAUSE OF : 1. Acute respiratory failure. 2. Acute respiratory distress syndrome secondary to recurrent aspiration pneumonia associated with significant dysphagia associated with a primary intracerebral hemorrhage. 3. Acute kidney injury. 4. Progressive shock, septic associated with pneumonia. 5. Metabolic encephalopathy associated with stroke and delirium. ADMISSION DIAGNOSES: 1. Lung cancer. Recent intraparenchymal bleed. 2. Chronic obstructive pulmonary disease. 3. Aspiration pneumonia. 4. Metabolic encephalopathy. 5. Acute kidney injury. 6. Iron deficiency anemia. 7. Dysphagia. PROCEDURES: 1. PEG placement per Dr. Beatty on the . 2. PICC line placement for IV. 3. EGD report showed erosive duodenitis and a 24-Turkmen PEG tube was placed. HOSPITAL COURSE: Briefly, the H and P on the showed that patient came in with confusion and cough. 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 Since that time he has had coughing with that. He has had a speech therapist evaluation in the past but did not have martha dysphagia. However chest CT this admission showed multilobar pneumonia. He is already status post left pneumonectomy from lung cancer. He was anemic. [place] [id number]. I think he was initially placed on BiPAP, broad-spectrum antibiotic therapy and because of his dysphagia, speech therapy was involved for further management. Dr. Brown was consulted for respiratory failure and made recommendations. He had been on antibiotics associated with such. Consult was made on the with fever, confusion. Patient had very slow improvement. He underwent a modified barium swallow on the which showed high-grade dysphagia, quick and prompt aspiration of thin barium, suboptimal cough reflex, difficulty initiating swallowing although he had been somewhat confused around the time of that episode. However speech therapy recommended that hyperalimentation should be accomplished but not through oral mechanism. He would need either PEG tube or parenteral nutrition. He had initially been placed on Merrem and vancomycin for his pneumonia. Plan was for a PEG placement which he underwent on the . He subsequently he did not do very well. Did not tolerate his tube feeds. He had significant pneumonia with high residuals. He was placed on a PPI. By the he had more hypoxemia. There was concern at that time that he would need to be intubated. He was placed on Clinimix. Not on the but on the I think we did pursue, there was concern over need for mechanical ventilation however Infectious Diseases was involved. That was on the . He did develop some progressive renal failure. On the he actually improved somewhat but a white count was still going the wrong way. Dr. Wright, Infectious Diseases evaluated the patient. Recommended Zyvox. He was on Merrem, Levaquin and then voriconazole for possible Aspergillus. On the he was on a non- rebreather. Dr. Cobb discussed with the and felt that they did not want to pursue mechanical ventilation. NG tube was placed because there was concern over aspiration associated with ileus. However patient was never really improved. Plans were made for possible TPN however his renal function continued to deteriorate. Did consult the Nephrology service but family was not interested in dialysis at that point and he was converted to a hospice patient. He was taken off BiPAP and quickly continued to deteriorate and later that day. Patient pronounced at 15:30. Family was counseled at the bedside. They notified Dr. Arceo. 32 minute discharge. cc: Lewis Lentz MD
--- NOTE | 2016-08-06 14:32 | PROGRESS NOTE ---
DATE: 07/07/2016 SUBJECTIVE: Resting in bed. Still has altered mental status. He had a CVA. His is at bedside. He currently is looking worse. OBJECTIVE: Vital signs: Temperature 99.8 degrees, pulse 92, respiration 22, blood pressure 118/60, saturation 92% on nasal cannula at 6 L. General: Laying in bed, tachypneic. HEENT: Pale conjunctivae and no icterus. Neck: Supple. Abdomen: Abdominal binder in place. He had a G-tube placed, but we have not started the tube feeding yet. We will wait and give him 1 more day before we start. LABORATORY DATA: Hemoglobin and hematocrit 8.3 and 26.2, white count 28,000electrolytes normal. Creatinine up to 2.2. Magnesium low at 1.9. IMPRESSION AND PLAN: 1. Status post gastrostomy tube. We have started the feeding and he is having high residuals. 2. Continue proton pump inhibitor for duodenitis. 3. Pneumoniae worsening. Malnutrition on Clinimix, but has problem with residuals. We will follow. cc: Tariq Brady MD
--- NOTE | 2016-08-06 14:33 | PROGRESS NOTE ---
DATE: 07/11/2016 SUBJECTIVE: Patient is looking worse no a nonrebreather mask 100% FiO2 and O2 saturation has continued to deteriorate. He is only able to open his eyes. OBJECTIVE: Vital Signs: Temperature 97 degrees. Pulse 110, respirations 22, blood pressure 80/50, saturation is only 50 on BiPAP, 100% FiO2. HEENT: Conjunctival pallor present. Neck: Supple. Trachea midline. Abdomen: Abdominal binder in place. PEG in place. No signs of site infection. Neurological: Minimally responsive by simply opening his eyes. LABORATORY: Hemoglobin and hematocrit are low at 7 and 20.22. White count is increasing to 38.6, INR 1.14. Potassium 3.8. Creatinine is increasing to 3. IMAGING: Chest x-ray done showed NG tube in the stomach along with G-tube. IMPRESSION AND PLAN: 1. Sepsis and worsening pneumonia and failure to thrive on multiple antibiotics. 2. High residuals. Percutaneous endoscopic gastrostomy is stopped and nasogastric suction is being done. 3. Constipation. 4. Acute kidney injury. 5. Continued recurrent aspiration pneumonia. The patient appears to be worse. Failure to thrive. We will not be able to start the feeding tube until his lungs improve. We will follow. -0 cc: Tariq Brady MD
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
== END 2016-07-11 15:30 | disposition expired ==
LOC: ED 04:40 → EDIPHOLD 10:10 → SUATTDRO 10:10 → ICU 12:20 → 3S 07-03 13:40 → ICU 07-09 12:38
PROVIDERS: ATTEND Internal Medicine